=== PATIENT | male | born 1950 | race Caucasian/White ===

== ENCOUNTER 2022-03-09 15:43 | Outpatient (CLI) | payer MEDICARE, SELFPAY ==
[2022-03-09 10:15] LABS: Albumin* 4.2 g/dL (3.3-5.0); Chloride* 100 mmol/L (96-114); Sodium* 141 mmol/L (135-149)
[2022-03-09 10:16] LABS: Potassium* 4.6 mmol/L (3.6-5.1)
[2022-03-09 10:17] LABS: Cholesterol* 108 mg/dL (90-199)
[2022-03-09 10:18] LABS: Alanine Aminotransferase* 19 U/L (4-50); Alkaline Phosphatase* 77 U/L (40-150); Aspartate Amino Transferase* 18 U/L (12-35); Bilirubin Total* 0.5 mg/dL (0.1-1.5); Blood Urea Nitrogen* 13 mg/dL (7-30); Carbon Dioxide* 28 mmol/L (20-32); Creatinine* 0.6 mg/dL (0.5-1.5); Estimated Glomerular Filt Rate 104 ml/min; Glucose* 171 mg/dL (60-115); Total Protein* 6.8 g/dL (6.0-8.3); Triglycerides* 77 mg/dL (40-149)
[2022-03-09 10:19] LABS: Calcium* 9.2 mg/dL (8.4-10.6); HDL Cholesterol* 38 mg/dL (>=40); LDL Cholesterol Calculated 55 mg/dL (<100)
[2022-03-09 10:35] LABS: Creatinine Urine 58.3 mg/dL
[2022-03-09 10:39] LABS: Microalbumin Creatinine Ratio 170 mg/g (0-30); Microalbumin Urine 10 mg/dL
[2022-03-09 10:49] LABS: PSA Screen* 1.89 ng/mL (0.10-4.00)
== END 2022-03-09 15:44 | disposition home or self-care (01) ==
PROVIDERS: Visit Provider Family Medicine
DX: Z00.00 Encounter for general adult medical examination without abnormal findings (principal); E11.9 Type 2 diabetes mellitus without complications; E78.00 Pure hypercholesterolemia, unspecified; I10 Essential (primary) hypertension; E66.01 Morbid (severe) obesity due to excess calories; Z12.5 Encounter for screening for malignant neoplasm of prostate; Z13.6 Encounter for screening for cardiovascular disorders; Z79.01 Long term (current) use of anticoagulants
CPT/HCPCS: 80053; 80061; 82043; 82570; 84153

== ENCOUNTER 2022-05-21 07:27 | Outpatient (CLI) | payer MEDICARE, SELFPAY ==
[2022-05-21 09:14] LABS: Albumin* 4.5 g/dL (3.3-5.0); Chloride* 103 mmol/L (96-114); Sodium* 140 mmol/L (135-149)
[2022-05-21 09:16] LABS: Carbon Dioxide* 31 mmol/L (20-32); Cholesterol* 107 mg/dL (90-199); Creatinine* 0.5 mg/dL (0.5-1.5); Estimated Glomerular Filt Rate 110 ml/min
[2022-05-21 09:17] LABS: Alanine Aminotransferase* 16 U/L (4-50); Alkaline Phosphatase* 58 U/L (40-150); Aspartate Amino Transferase* 22 U/L (12-35); Bilirubin Total* 1.1 mg/dL (0.1-1.5); Blood Urea Nitrogen* 15 mg/dL (7-30); Calcium* 9.4 mg/dL (8.4-10.6); Glucose* 108 mg/dL (60-115); HDL Cholesterol* 34 mg/dL (>=40); LDL Cholesterol Calculated 56 mg/dL (<100); Total Protein* 7.4 g/dL (6.0-8.3); Triglycerides* 84 mg/dL (40-149)
[2022-05-21 09:29] LABS: Potassium* 5.5 mmol/L (3.6-5.1)
== END 2022-05-21 07:28 | disposition home or self-care (01) ==
LOC: NFLDREF 07:28
PROVIDERS: PCP Family Medicine; Visit Provider Family Medicine
DX: I10 Essential (primary) hypertension (principal); E78.00 Pure hypercholesterolemia, unspecified
CPT/HCPCS: 80053; 80061

== ENCOUNTER 2022-08-23 07:35 | Outpatient (CLI) | payer MEDICARE, SELFPAY | END 2022-08-23 07:36 | disposition home or self-care (01) | LOC: NFLDREF 08-24 00:26 | PROVIDERS: PCP Family Medicine; Referring Provider Family Medicine; Visit Provider Family Medicine | DX: I10 Essential (primary) hypertension (principal) | CPT/HCPCS: 80048 ==

== ENCOUNTER 2022-11-12 08:11 | Outpatient (CLI) | payer MEDICARE, SELFPAY | END 2022-11-12 08:12 | disposition home or self-care (01) | PROVIDERS: PCP Family Medicine; Visit Provider Family Medicine | DX: E66.01 Morbid (severe) obesity due to excess calories (principal); E11.21 Type 2 diabetes mellitus with diabetic nephropathy; E78.00 Pure hypercholesterolemia, unspecified; I10 Essential (primary) hypertension; I48.20 Chronic atrial fibrillation, unspecified; Z79.01 Long term (current) use of anticoagulants; Z12.5 Encounter for screening for malignant neoplasm of prostate | CPT/HCPCS: 80053; 82043; 82570; 84153 ==

== ENCOUNTER 2022-12-07 07:30 | Outpatient (CLI) | payer MEDICARE, SELFPAY | END 2022-12-07 07:31 | disposition home or self-care (01) | LOC: NFLDREF 12-08 08:52 | PROVIDERS: PCP Family Medicine; Referring Provider Family Medicine; Visit Provider Family Medicine | DX: I10 Essential (primary) hypertension (principal) | CPT/HCPCS: 80048 ==

== ENCOUNTER 2023-05-17 07:28 | Outpatient (CLI) | payer MEDICARE, SELFPAY ==
--- OUTSIDE RECORDS SUMMARY | 2023-05-22 11:55 | XMS_ITS | Clinical Summary ---
Author Name Unknown Organization [id number] [facility] Address [place], [place] [address] Care Team Providers Care Medical Insurance Collector Name Role Phone Bonnie Child MD Primary Care Provider + Allergies Active Allergy Reactions Criticality Noted Date Comments Venom-Honey Bee Anaphylaxis High 10/16/2017 Cephalexin Rash 10/16/2017 Erythromycin Hives 10/16/2017 Insulin Detemir Rash 10/16/2017 Opioids - Morphine Analogues Angioedema 018 Penicillins Anaphylaxis High 10/16/2017 Poison Sayra Extract Rash 10/16/2017 Poison Medon Extract Rash 10/16/2017 Shellfish Derived Hives,Rash 10/16/2017 Medications Medication Sig Dispensed Refills Start Date End Date Status apixaban 5 mg (74 tabs) DsPk Take 5 mg by mouth 2 times daily. 0 10/02/2017 Active aspirin (ECOTRIN) 81 mg enteric coated tablet Take 81 mg by mouth once daily. 0 10/02/2017 Active lisinopril (PRINIVIL; ZESTRIL) 10 mg tablet Take 7.5 mg by mouth 2 times daily. 0 10/02/2017 Active lisinopril (PRINIVIL; ZESTRIL) 5 mg tablet Take 7.5 mg by mouth 2 times daily. 0 10/02/2017 Active simvastatin (ZOCOR) 40 mg tablet Take 40 mg by mouth once daily. 0 10/02/2017 Active metoprolol succinate (TOPROL XL) 50 mg sustained-release tablet Take 150 mg by mouth once daily. 0 10/02/2017 Active insulin detemir U-100 (LEVEMIR) 100 unit/mL (3 mL) pen Inject 20 Units subcutaneous once daily with a meal. 0 10/02/2017 Active NOVOLOG U-100 INSULIN ASPART SUBQ Inject 6 Units subcutaneous once daily. 0 10/02/2017 Active ketoconazole 2% shampoo (NIZORAL) 2 % shampoo Apply topically to affected area(s) once daily. Lather on damp scalp, leave on for 5min, then rinse with water. 1 Bottle 0 10/16/2017 Active triamcinolone (ARISTOCORT; KENALOG) 0.1 % cream Apply topically to affected area(s) 3 times daily. 1 Tube 0 10/16/2017 Active Active Problems Problem Noted Date Diagnosed Date Thoracic aortic ectasia 11/17/2018 Chronic atrial fibrillation 11/17/2018 Type 2 diabetes mellitus wit hout complication, with long-term current use of insulin 11/17/2018 Social History Tobacco Use Types Packs/Day Years Used Date Smoking Tobacco: Former Pipe 0 05/13/1973 - 05/13/1990 Smokeless Tobacco: Never Tobacco Cessation:Counseling Given: Yes Alcohol Use Standard Drinks/Week Comments Yes 0 (1 standard drink = 0.6 oz pur e alcohol) occas Sex and Gender Information Value Date Recorded Sex Assigned at Not on file Gender Identity Not on file Sexual Orientation Not on file Obstetrics History Last Filed Vital Signs Vital Sign Reading Time Taken Comments Blood Pressure 147/88 10/16/2017 9:34 AM CDT Pulse 66 10/16/2017 9:34 AM CDT Temperature 36.7 ??C (98.1 ??F) 10/16/2017 9:34 AM CD T Respiratory Rate - - Oxygen Saturation 97% 10/16/2017 9:34 AM CDT Inhaled Oxygen Concentration - - Weight 132.3 kg (291 lb 9.6 oz) 10/16/2017 9:34 AM CDT Height - - Body Mass Index - - Plan of Treatment Health Maintenance Due Date Last Done Comments COVID-19 vaccine series (#1) 03/13/1952 Tdap 09/10/1962 Depression screening for age 12+ 1963 BMI (ht and wt on same day) for age 18+ 09/10/1969 Hepatitis C screening for age 18-79 09/10/1969 Tetanus booster 1971 Colonoscopy through age 75 09/10/1996 Lipids for age 45-75 09/10/1996 Zoster (shingles) series for age 50+ (1 of 2) 09/11/19 02 Medicare Wellness for age 65+ 09/10/2016 Pneumococcal series for age 65+ (1 of 1 - PCV) 017 Influenza for age 65+ 01/11/2023 Care Teams Medical Insurance Collector Relationship Specialty Start Date End Date Bonnie Child MD [address] [place] [address] PCP - General Family Practice 10/02/17
--- OUTSIDE RECORDS SUMMARY | 2023-05-22 11:55 | XMS_ITS | Data Portability ---
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 Plan of Treatment Reminders Order Date Submit Date Provider Last Modified By Organization Details Last Modified Time Details Appointments None recorded. Lab None recorded. Referral None recorded. Procedures None recorded. Surgeries None recorded. Imaging holter monitor 2016 017 bam Robertson, [address], [place], [address], 7 12:27:34 US, duplex, carotid artery 2016 017 [email or web address] [place], [address], [place], [address], 7 09:58:19 exercise stress echocardio gram 2016 017 [email or web address] [place], [address], [place], [address], 7 09:58:19 electrocar diogram 2016 017 [email or web address] [place], [address], [place], [address], 7 16:39:02 Medication Orders metoprolol succinate ER 50 mg tablet,ext ended release 24 hr 2016 017 INTERFACE [facility] [id number], [address] [place] [address], [id number], 7 11:58:24 lisinopril 5 mg tablet 2016 017 INTERFACE [facility] [id number], [address] [place], [address], 7 11:58:22 lisinopril 10 mg tablet [email or web address] [facility] [id number], [address] [place] [address], [id number], 8 14:34:25 Patient TargetsNo targets recorded. Patient InstructionsNo instructions recorded. Reason for Referral None Reported. Results Created Date Observation Date Name Description Value Unit Range Abnormal Flag LastModifiedBy Organization Detail LastModifiedTime 05/12/20 08 05/12/2008 lipid panel , serum cholesterol 199 Not Available Not Available 08/08/2016 14:51:12 05/12/20 08 05/12/2008 lipid panel , serum HDL 39.00 Not Available Not Available 07/12 14:51:12 05/12/20 08 05/12/2008 lipid panel , serum LDL 91.00 Not Available Not Available 07/12 14:51:12 05/12/20 08 05/12/2008 lipid panel , serum triglyceride s 347 Not Available Not Available 14:51:12 05/12/20 08 05/12/2008 lipid panel , serum cholhdlratio 5.10 Not Available Not Available 08/08/2016 14:51:12 05/12/20 08 05/12/2008 lipid panel , serum nonhdl 160.00 Not Available Not Available 07/12 14:51:12 05/12/20 08 05/12/2008 lipid panel , serum AST 10 Not Available Not Available 07/12 14:51:12 05/12/20 08 05/12/2008 lipid panel , serum ALT 42 Not Available Not Available 07/12 14:51:12 06/11/19 15 06/11/2014 lipid panel , serum cholesterol 134 Not Available Not Available 08/08/2016 18:32:07 06/11/19 15 06/11/2014 lipid panel , serum HDL 50.00 Not Available Not Available 07/12 18:32:07 06/11/19 15 06/11/2014 lipid panel , serum LDL 69.00 Not Available Not Available 07/12 18:32:07 06/11/19 15 06/11/2014 lipid panel , serum triglyceride s 76 Not Available Not Available 18:32:07 06/11/19 15 06/11/2014 lipid panel , serum cholhdlratio 2.68 Not Available Not Available 08/08/2016 18:32:07 06/11/19 15 06/11/2014 lipid panel , serum nonhdl 84.00 Not Available Not Available 07/12 18:32:07 06/11/19 15 06/11/2014 lipid panel , serum AST 27 Not Available Not Available 07/12 18:32:07 06/11/19 15 06/11/2014 lipid panel , serum ALT 57 Not Available Not Available 07/12 18:32:07 07/08/19 15 07/09/2014 digox in, serum digoxin, serum 0.9 NG/mL 0.9-2. 0 Not Available [facility], [address] 07/12/2016 05:52:14 06/28/19 16 06/28/2015 lipid panel , serum cholesterol 123 Not Available Not Available 08/08/2016 18:32:05 06/28/19 16 06/28/2015 lipid panel , serum HDL 52.00 Not Available Not Available 07/12 18:32:05 06/28/19 16 06/28/2015 lipid panel , serum LDL 56.00 Not Available Not Available 07/12 18:32:05 06/28/19 16 06/28/2015 lipid panel , serum triglyceride s 76 Not Available Not Available 18:32:05 06/28/19 16 06/28/2015 lipid panel , serum cholhdlratio 2.37 Not Available Not Available 08/08/2016 18:32:05 06/28/19 16 06/28/2015 lipid panel , serum nonhdl 71.00 Not Available Not Available 07/12 18:32:05 06/28/19 16 06/28/2015 lipid panel , serum AST 42 Not Available Not Available 07/12 18:32:05 06/28/19 16 06/28/2015 lipid panel , serum ALT 55 Not Available Not Available 07/12 18:32:05 07/07/19 16 07/08/2015 digox in, serum digoxin <0.5 mcg/L 0.8-2. 0 low Not Available [facility] [place], [address] 08/17/2016 14:12:05 07/07/19 16 07/08/2015 basic metab olic panel glucose 94 mg/dL 65-99 normal Not Available [facility] [place], [address] 08/17/2016 14:12:04 07/07/19 16 07/08/2015 basic metab olic panel urea nitrogen (BUN) 27 mg/dL 7-25 high Not Available [facility] [place], [address] 08/17/2016 14:12:04 07/07/19 16 07/08/2015 basic metab olic panel creatinine 0.79 mg/dL 0.70-1 .25 normal Not Available [facility] [place], [address] 08/17/2016 14:12:04 07/07/19 16 07/08/2015 basic metab olic panel eGFR non-afr. macanese 96 mL/mi n/1.7 3m2 > or = 60 normal Not Available [facility] [place], [address] 08/17/2016 14:12:04 07/07/19 16 07/08/2015 basic metab olic panel eGFR 111 mL/mi n/1.7 3m2 > or = 60 normal Not Available [facility] [place], [address] 08/17/2016 14:12:04 07/07/19 16 07/08/2015 basic metab olic panel BUN/creatini ne ratio 34 (calc ) 6-22 high Not Available [facility] [place], [address] 08/17/2016 14:12:04 07/07/19 16 07/08/2015 basic metab olic panel sodium 139 mmol/ L 135-14 6 normal Not Available [facility] [place], [address] 08/17/2016 14:12:04 07/07/19 16 07/08/2015 basic metab olic panel potassium 5.1 mmol/ L 3.5-5. 3 normal Not Available [facility] [place], [address] 08/17/2016 14:12:04 07/07/19 16 07/08/2015 basic metab olic panel chloride 104 mmol/ L 98-110 normal Not Available [facility] [place], [address] 08/17/2016 14:12:04 07/07/19 16 07/08/2015 basic metab olic panel carbon dioxide 31 mmol/ L 19-30 high Not Available [facility] [place], [address] 08/17/2016 14:12:04 07/07/19 16 07/08/2015 basic metab olic panel calcium 9.5 mg/dL 8.6-10 .3 normal Not Available [facility] [place], [address] 08/17/2016 14:12:04 06/27/19 17 12/18/2013 unlis margaret imagi ng order No observ ation record ed. [email or web address] Not Available 06/27/2016 00:03:36 06/27/19 17 05/12/2008 unlis margaret imagi ng order No observ ation record ed. [email or web address] Not Available 06/27/2016 00:03:38 06/27/19 17 07/01/2015 , echoc ardio gram No observ ation record ed. [email or web address] Not Available 06/27/2016 00:03:40 06/27/19 17 01/24/2010 US, echoc ardio gram No observ ation record ed. [email or web address] Not Available 06/27/2016 00:03:43 06/27/19 17 01/24/2010 US, echoc ardio gram No observ ation record ed. [email or web address] Not Available 06/27/2016 00:03:45 02/15/20 17 04/11/2007 US, echoc jeremyo gram No observ ation record ed. [email or web address] Not Available 06/27/2016 00:03:48 06/27/19 17 07/21/2007 elect rocar diogr am No observ ation record ed. [email or web address] Not Available 06/27/2016 00:03:50 06/27/19 17 08/04/2010 elect rocar diogr am No observ ation record ed. [email or web address] Not Available 06/27/2016 00:03:53 06/27/19 17 11/18/2009 elect rocar diogr am No observ ation record ed. [email or web address] Not Available 06/27/2016 00:03:55 06/27/19 17 11/25/2013 elect rocar diogr am No observ ation record ed. [email or web address] Not Available 06/27/2016 00:03:58 06/27/19 17 12/12/2011 elect rocar diogr am No observ ation record ed. [email or web address] Not Available 06/27/2016 00:04:01 06/27/19 17 12/17/2012 elect rocar diogr am No observ ation record ed. [email or web address] Not Available 06/27/2016 00:04:03 06/27/19 17 12/24/2014 elect rocar diogr am No observ ation record ed. [email or web address] Not Available 06/27/2016 00:04:06 06/27/19 17 07/01/2015 US, doppl er, arter ial No observ ation record ed. [email or web address] Not Available 06/27/2016 00:04:09 06/27/19 17 09/03/2008 US, doppl er, arter ial No observ ation record ed. [email or web address] Not Available 06/27/2016 00:04:11 06/27/19 17 01/13/2013 US, doppl er, arter ial No observ ation record ed. [email or web address] Not Available 06/27/2016 00:04:14 06/27/19 17 01/01/2012 cardi ac stres s test No observ ation record ed. [email or web address] Not Available 06/27/2016 00:04:17 06/27/19 17 01/01/2012 cardi ac stres s test No observ ation record ed. [email or web address] Not Available 06/27/2016 00:04:20 06/27/19 17 04/16/2008 cardi ac stres s test No observ ation record ed. [email or web address] Not Available 06/27/2016 00:04:23 06/27/19 17 04/17/2007 cardi ac stres s test No observ ation record ed. [email or web address] Not Available 06/27/2016 00:04:27 06/27/19 17 04/25/2007 imagi ng inter preta tion No observ ation record ed. [email or web address] Not Available 06/27/2016 00:04:30 06/27/19 17 04/25/2007 imagi ng inter preta tion No observ ation record ed. [email or web address] Not Available 06/27/2016 00:04:33 08/16/19 17 elect rocar diogr am No observ ation record ed. [email or web address] [place]o [address], [place], [address], 08/15/2016 17:46:40 09/05/19 17 exerc ise stres s echoc ardio gram No observ ation record ed. [email or web address] [place] [address], [place], [address], 10/02/2016 13:51:20 09/07/19 17 09/06/2016 exerc ise stres s echoc ardio gram RESTIN G ECHOCA RDIOGR AM: The left ventri cular ejecti on fracti on is within the normal range. LVEF is 60-65% . Diasto lic functi on is indete rminat e due to atrial fibril lation Left atrium is modera tely dilate d. Right atrium is modera tely dilate d. The Aortic valve is sclero tic. There is no aortic valvul ar stenos is. Mild mitral regurg itatio n. Mild to modera te pulmon ic regurg itatio n. Mild tricus pid regurg itatio n. The RVSP is 30-35 mmHg. STRESS ECHOCA RDIOGR AM: Normal stress echoca rdiogr am. No eviden ce of induci ble wall motion abnorm alitie s with stress . EKG showed freque nt PVCs.R ESTING ECHOCA RDIOGR AM: The left ventri cular ejecti on fracti on is within the normal range. LVEF is 60-65% . Diasto lic functi on is indete rminat e due to atrial fibril lation Left atrium is modera tely dilate d. Right atrium is modera tely dilate d. The Aortic valve is sclero tic. There is no aortic valvul ar stenos is. Mild mitral regurg itatio n. Mild to modera te pulmon ic regurg itatio n. Mild tricus pid regurg itatio n. The RVSP is 30-35 mmHg. STRESS ECHOCA RDIOGR AM: Normal stress echoca rdiogr am. No eviden ce of induci ble wall motion abnorm alitie s with stress . EKG showed freque nt PVCs. [email or web address] Robertson [address], [place], [address], 11/12/2016 11:34:27 09/07/19 17 09/06/2016 exerc ise stres s echoc ardio gram No observ ation record ed. bam Robertson [address], [place], [address], 10/02/2016 13:51:21 09/07/19 17 09/06/2016 US, duple x, carot id arter y 1. 40-45% stenos is in the right ICA by 2-D. No hemody namica lly signif icant lesion s. 2. 30-35% stenos is in the right bulb and 40-45% stenos is in the right ICA by 2-D. No hemody namica lly signif icant lesion s. 3. 30-35% stenos is in the left CCA and 40-45% stenos is in the right bulb. No hemody namica lly signif icant lesion s. 4. Bilate ral anterg rade verteb ral flow. bam Robertson [address], [place], [address], 10/02/2016 13:51:21 09/07/19 17 09/06/2016 US, duple x, carot id arter y No observ ation record ed. bam Robertson [address], [place], [address], 10/02/2016 13:51:21 09/26/19 17 donato r monit or No observ ation record ed. bam Robertson [address], [place], [address], 12/14/2016 10:20:23 Result Notes None recorded. Problems Name Status Onset Date Resolution Date Notes Provider Name and Address Organization Details Recorded Time Pure hypercholesterol emia Active 2009 Not Available [facility] 7 21:59:45 Coronary arteriosclerosis Active 2006 PCI [LAD mid Taxus 2.75 X 16, RCA mid taxus 2.5 X 20] - 04/25/2007 Not Available [facility] 7 21:59:45 Paroxysmal atrial fibrillation Active 2009 PAF Not Available [facility] 7 21:59:45 Coronary arteriosclerosis in [place] artery Active 2009 Not Available [facility] 7 21:59:45 Benign essential hypertension Active 2009 Not Available [facility] 7 21:59:46 Atrial fibrillation Active 2010 Not Available [facility] 7 21:59:46 Multiple AND bilateral precerebral artery stenosis Active 2012 Not Available [facility] 7 21:59:46 Permanent atrial fibrillation Active 2015 Not Available [facility] 7 21:59:46 Dyslipidemia Active 2009 Dyslipidemia [Type: Cholesterol] Not Available [facility] 7 21:59:46 Diabetes mellitus Active 2012 Diabetes Not Available [facility] 7 21:59:46 Hypertensive disorder Active 2012 Hypertension Not Available [facility] 7 21:59:46 Type 2 diabetes mellitus Active 2009 Not Available [facility] 7 21:59:46 Electrocardiogra m abnormal Active 2011 Not Available [facility] 7 21:59:46 History of cardiac catheterization Active 2006 [facility] [EF 60%, LAD mid 70-80%, RCA is Dominant & prox 90-95%] - 04/25/2007 Not Available [facility] 7 21:59:46 Notes:07/04/2015: ReportDisp lay: Moderate ICA Right 30-50-% ReportDisplay: Moderate CCA Bulb Right 30-50%, Problem Notes None recorded. Procedures Surgical History Date Name Laterality Status Provider Name and Address Organization Details Recorded Time 017 Stress Echo (13867) completed Arturo sánchez, [place] - [facility] 11/05/2016 16:49:33 017 Carotid Duplex completed Avi sánchez, [place] - [facility] 11/12/2016 11:35:26 016 Tte w/doppler complete completed Not Available [email or web address] 08/03/2016 14:05:47 016 Vascular study completed Not Available [email or web address] 08/03/2016 14:05:47 015 Electrocardiogram complete completed Not Available [facility] 08/03/2016 14:05:47 014 Electrocardiogram complete completed Not Available [email or web address] 08/03/2016 14:05:47 013 Vascular study completed Not Available [email or web address] 08/03/2016 14:05:47 013 Electrocardiogram complete completed Not Available [facility] 08/03/2016 14:05:47 012 Cardiovascular stress test completed Not Available [facility] 08/03/2016 14:05:47 012 Cardiovascular stress test completed Not Available [facility] 08/03/2016 14:05:47 012 Electrocardiogram complete completed Not Available [facility] 08/03/2016 14:05:47 011 Electrocardiogram complete completed Not Available [facility] 08/03/2016 14:05:47 010 Tte w/doppler complete completed Not Available [email or web address] 08/03/2016 14:05:47 010 Tte w/doppler complete completed Not Available [email or web address] 08/03/2016 14:05:47 010 Electrocardiogram complete completed Not Available [facility] 08/03/2016 14:05:47 009 Vascular study completed Not Available [email or web address] 08/03/2016 14:05:47 008 Cardiovascular stress test completed Not Available [facility] 08/03/2016 14:05:47 008 Electrocardiogram complete completed Not Available [facility] 08/03/2016 14:05:47 007 Left heart catheterization completed Not Available [facility] 08/03/2016 14:05:47 007 Left heart catheterization completed Not Available [facility] 08/03/2016 14:05:47 007 Cardiovascular stress test completed Not Available [facility] 08/03/2016 14:05:48 007 Tte w/doppler complete completed Not Available [facility] 08/03/2016 14:05:48 Imaging Results Imaging Date Name Status LastModified by Organization Details LastModified Time 12/18/2013 unlisted imaging order completed [email or web address] Information not available 06/27/2016 00:03:36 05/12/2008 unlisted imaging order completed [email or web address] Information not available 06/27/2016 00:03:38 07/01/2015 US, echocardiogram completed [email or web address] Inform ation not available 06/27/2016 00:03:40 01/24/2010 US, echocardiogram completed [email or web address] Inform ation not available 06/27/2016 00:03:43 01/24/2010 US, echocardiogram completed [email or web address] Inform ation not available 06/27/2016 00:03:45 04/11/2007 US, echocardiogram completed [email or web address] Inform ation not available 06/27/2016 00:03:48 07/21/2007 electrocardiogram completed [email or web address] Informa tion not available 06/27/2016 00:03:50 08/04/2010 electrocardiogram completed [email or web address] Informa tion not available 06/27/2016 00:03:53 11/18/2009 electrocardiogram completed [email or web address] Informa tion not available 06/27/2016 00:03:55 11/25/2013 electrocardiogram completed [email or web address] Informa tion not available 06/27/2016 00:03:58 12/12/2011 electrocardiogram completed [email or web address] Informa tion not available 06/27/2016 00:04:01 12/17/2012 electrocardiogram completed [email or web address] Informa tion not available 06/27/2016 00:04:03 12/24/2014 electrocardiogram completed [email or web address] Informa tion not available 06/27/2016 00:04:06 07/01/2015 US, doppler, arterial completed [email or web address] Information not available 06/27/2016 00:04:09 09/03/2008 US, doppler, arterial completed [email or web address] Information not available 06/27/2016 00:04:11 01/13/2013 US, doppler, arterial completed [email or web address] Information not available 06/27/2016 00:04:14 01/01/2012 cardiac stress test completed [email or web address] Infor mation not available 06/27/2016 00:04:17 01/01/2012 cardiac stress test completed [email or web address] Infor mation not available 06/27/2016 00:04:20 04/16/2008 cardiac stress test completed [email or web address] Infor mation not available 06/27/2016 00:04:23 04/17/2007 cardiac stress test completed [email or web address] Infor mation not available 06/27/2016 00:04:27 04/25/2007 imaging interpretation completed [email or web address] Information not available 06/27/2016 00:04:30 04/25/2007 imaging interpretation completed [email or web address] Information not available 06/27/2016 00:04:33 08/15/2016 electrocardiogram completed [email or web address] [place] [address], [place], [address], 08/15/2016 17:46:40 09/04/2016 exercise stress echocardiogram completed lbrummond [place] [address], [place], [address], 10/02/2016 13:51:20 09/06/2016 exercise stress echocardiogram completed [email or web address] Robertson [address], [place], [address], 11/12/2016 11:34:27 09/06/2016 exercise stress echocardiogram completed lbrumjarred Robertson [address], [place], [address], 10/02/2016 13:51:21 09/06/2016 US, duplex, carotid artery completed lbrummond [place] [address], [place], [address], 10/02/2016 13:51:21 09/06/2016 US, duplex, carotid artery completed lbrummond [place] [address], [place], [address], 10/02/2016 13:51:21 09/25/2016 holter monitor completed [email or web address] [place] [address], [place], [address], 12/14/2016 10:20:23 Procedure Notes None recorded. Medical Equipment None Reported. Allergies Allergen ID Allergen Name Allergen Category Reaction Reaction Severity Criticality Documentation Date Start Date Code Code System Note Provider Name and Address Organization Details Recorded Time [id number] erythromy jaime medicatio n Not available Not available Not available 05/10/20162009 4053 RxNorm Not Available [facility] 6 14:34:34 647860 Medicinal product containin g penicilli n and acting as antibacte rial agent (product) medicatio n Not available Not available Not available 05/10/20162009 05835 05 SNOMED Not Available [facility] 6 14:34:34 Medications Name Sig Start Date Stop Date Status Note LastModified by Organization Details LastModified Time metoprolol succinate ER 50 mg tablet,exte nded release 24 hr TAKE THREE TABLETS BY MOUTH DAILY NEED TO GET ALL FUTURE REFILLS FROM [facility] 2017 active Not Available Not Available Not Avai lable simvastatin 40 mg tablet TAKE ONE TABLET BY MOUTH EVERY EVENING active Not Available Not Available No t Available lisinopril 10 mg tablet TAKE 1 TABLET BY MOUTH EVERY DAY 2017 active Not Available Not Available Not Avai lable aspirin 81 mg tablet take 1 tablet (81MG) by ORAL route every day 2010 active Not Available Not Available Not Avai lable lisinopril 5 mg tablet Take 2 tablets every day by oral route. 2016 active Not Available Not Available Not Avai lable pen needle, diabetic 31 gauge x 5/16 08/15 completed Not Available Not Available Not Available Novolog FlexPen U-100 Insulin aspart 100 unit/mL (3 mL) subcutaneou s active Not Available Not Available Not Available Lantus Solostar U-100 Insulin 100 unit/mL (3 mL) subcutaneou s pen PRN for blood sugar over 100. active Not Available Not Available No t Available Humalog Mix 50-50 KwikPen U-100 Insulin 100 unit/mL subcutaneou s pen inject by subcutane ous route as per insulin sliding scale protocol 08/15 completed Not Available Not Available Not Available Protonix 40 mg granules delayed-rel ease packet take 1 packet by oral route every day mixed in 1 teaspoonf ul of applesauc e or apple juice 08/15 completed Not Available Not Available Not Available Prevnar 13 (PF) 0.5 mL intramuscul ar syringe 08/15 completed Not Available Not Available Not Available Eliquis 5 mg tablet TAKE 1 TABLET BY MOUTH TWICE A DAY active Not Available Not Available No t Available Fluzone Quad 60 mcg (15 mcg x 4)/0.5 mL IM suspension 08/15 completed Not Available Not Available Not Available Vitals Date Recorded Heart rate Provider Name an d Address Organization Details Last Updated DateTime 06/23/2015 59 /min Not Available [facility] 06/26/2016 18:25:35 Date Recorded Heart rate Provider Name an d Address Organization Details Last Updated DateTime 06/23/2014 64 /min Not Available [facility] 06/26/2016 22:32:30 Date Recorded Heart rate Provider Name an d Address Organization Details Last Updated DateTime 12/24/2014 61 /min Not Available [facility] 06/27/2016 00:01:28 Date Recorded Heart rate Provider Name an d Address Organization Details Last Updated DateTime 11/25/2013 75 /min Not Available [facility] 06/27/2016 09:38:58 Date Recorded Heart rate Provider Name an d Address Organization Details Last Updated DateTime 01/06/2014 75 /min Not Available [facility] 06/27/2016 09:41:31 Date Recorded Heart rate Provider Name an d Address Organization Details Last Updated DateTime 06/18/2012 79 /min Not Available [facility] 06/27/2016 09:53:40 Date Recorded Heart rate Provider Name an d Address Organization Details Last Updated DateTime 12/17/2012 121 /min Not Available [facility] 06/27/2016 15:27:18 Date Recorded Heart rate Body mass index (BMI) Heart rate Body weight Body height Systolic blood pressure Diastolic blood pressure Provider Name and Address Organization Details Last Updated DateTime 3 88 /min 36.8 kg/m2 88 /min 877511. 29951 g 177.8 cm 128 mm[Hg] 80 mm[Hg] Not Available [facility] 7 04:33:30 Date Recorded Heart rate Provider Name an d Address Organization Details Last Updated DateTime 12/12/2011 81 /min Not Available [facility] 06/28/2016 08:30:57 Date Recorded Heart rate Provider Name an d Address Organization Details Last Updated DateTime 11/22/2010 72 /min Not Available [facility] 06/28/2016 08:32:06 Date Recorded Heart rate Provider Name an d Address Organization Details Last Updated DateTime 08/04/2010 105 /min Not Available nicol gordilloHearthang [facility] [facility] 06/28/2016 08:35:02 Date Recorded Heart rate Body weight Body height Body mass index (BMI) Heart rate Respiratory rate Systolic blood pressure Diastolic blood pressure Provider Name and Address Organization Details Last Updated DateTime 1 72 /min 065577. 54908 g 177.8 cm 38.6 kg/m2 72 /min 16 /min 120 mm[Hg] 88 mm[Hg] Not Available [facility] 7 04:33:33 Date Recorded Heart rate Body weight Body height Body mass index (BMI) Heart rate Respiratory rate Systolic blood pressure Diastolic blood pressure Provider Name and Address Organization Details Last Updated DateTime 1 94 /min 113428. 39022 g 177.8 cm 37 kg/m2 94 /min 17 /min 122 mm[Hg] 86 mm[Hg] Not Available [facility] 7 04:33:32 Date Recorded Heart rate Body weight Body height Body mass index (BMI) Heart rate Respiratory rate Systolic blood pressure Diastolic blood pressure Provider Name and Address Organization Details Last Updated DateTime 0 71 /min 864917. 16926 g 177.8 cm 38.3 kg/m2 71 /min 16 /min 120 mm[Hg] 88 mm[Hg] Not Available [facility] 7 04:32:48 Date Recorded Heart rate Provider Name an d Address Organization Details Last Updated DateTime 01/27/2010 70 /min Not Available eugeneedmond Connor [facility] 06/28/2016 08:43:48 Date Recorded Body weight Body height Body mass index (BMI) Heart rate Systolic blood pressure Diastolic blood pressure Provider Name and Address Organization Details Last Updated DateTime 7 398952. 46 g 175.26 cm 37.5 kg/m2 59 /min 180 mm[Hg] 100 mm[Hg] [place] [address], [place], [address], [place] - [facility] 7 16:05:10 Date Recorded Body height Body weight Body mass index (BMI) Heart rate Oxygen saturation Oxygen saturation in Arterial blood by Pulse oximetry Systolic blood pressure Diastolic blood pressure Provider Name and Address Organization Details Last Updated DateTime 7 175.26 cm 786372. 68 g 37.1 kg/m2 76 /min 97 % 97 % 160 mm[Hg] 100 mm[Hg] [place] [address], [place], [address], [place] - [facility] 7 15:45:20 Date Recorded Body height Body weight Body mass index (BMI) Heart rate Oxygen saturation Oxygen saturation in Arterial blood by Pulse oximetry Systolic blood pressure Diastolic blood pressure Provider Name and Address Organization Details Last Updated DateTime 7 175.26 cm 828496. 46 g 37.5 kg/m2 62 /min 97 % 97 % 138 mm[Hg] 86 mm[Hg] Maryjane Goldsmith [facility], [place] - [facility] 7 11:36:26 Date Recorded Oxygen saturation Oxygen saturation in Arterial blood by Pulse oximetry Body weight Body height Body mass index (BMI) Heart rate Systolic blood pressure Diastolic blood pressure Provider Name and Address Organization Details Last Updated DateTime 6 97 % 97 % 61550.9 9007 g 177.8 cm 30.4 kg/m2 59 /min 130 mm[Hg] 78 mm[Hg] Not Available [facility] 7 04:32:48 Date Recorded Heart rate Body weight Body height Body mass index (BMI) Systolic blood pressure Diastolic blood pressure Provider Name and Address Organization Details Last Updated DateTime 5 64 /min 11801.3 5955 g 177.8 cm 30.9 kg/m2 124 mm[Hg] 72 mm[Hg] Not Available [facility] 7 04:33:29 Date Recorded Body weight Body height Body mass index (BMI) Heart rate Systolic blood pressure Diastolic blood pressure Provider Name and Address Organization Details Last Updated DateTime 5 89704.8 4348 g 177.8 cm 29.4 kg/m2 61 /min 126 mm[Hg] 84 mm[Hg] Not Available [facility] 7 04:33:28 Date Recorded Heart rate Oxygen saturation Oxygen saturation in Arterial blood by Pulse oximetry Body weight Body height Body mass index (BMI) Systolic blood pressure Diastolic blood pressure Provider Name and Address Organization Details Last Updated DateTime 4 75 /min 98 % 98 % 882916. 10826 g 177.8 cm 33.2 kg/m2 124 mm[Hg] 84 mm[Hg] Not Available [facility] 7 04:33:29 Date Recorded Heart rate Oxygen saturation Oxygen saturation in Arterial blood by Pulse oximetry Body weight Body height Body mass index (BMI) Systolic blood pressure Diastolic blood pressure Provider Name and Address Organization Details Last Updated DateTime 4 75 /min 92 % 92 % 117743. 02482 g 177.8 cm 35.5 kg/m2 142 mm[Hg] 80 mm[Hg] Not Available [facility] 7 04:33:29 Date Recorded Body height Body mass index (BMI) Heart rate Body weight Systolic blood pressure Diastolic blood pressure Provider Name and Address Organization Details Last Updated DateTime 3 177.8 cm 37.2 kg/m2 121 /min 929476. 045198 g 150 mm[Hg] 98 mm[Hg] Not Available [facility] 7 04:33:30 Date Recorded Body weight Body height Body mass index (BMI) Heart rate Systolic blood pressure Diastolic blood pressure Provider Name and Address Organization Details Last Updated DateTime 3 518740. 89695 g 177.8 cm 37 kg/m2 79 /min 118 mm[Hg] 80 mm[Hg] Not Available [facility] 7 04:33:30 Date Recorded Body weight Body height Body mass index (BMI) Heart rate Respiratory rate Systolic blood pressure Diastolic blood pressure Provider Name and Address Organization Details Last Updated DateTime 2 639828. 49886 g 177.8 cm 37 kg/m2 81 /min 16 /min 130 mm[Hg] 80 mm[Hg] Not Available [facility] 7 04:33:31 Date Recorded Body weight Body height Body mass index (BMI) Heart rate Respiratory rate Systolic blood pressure Diastolic blood pressure Provider Name and Address Organization Details Last Updated DateTime 1 711662. 86381 g 177.8 cm 38.6 kg/m2 72 /min 72 /min 140 mm[Hg] 80 mm[Hg] Not Available [facility] 7 04:33:33 Date Recorded Body height Body mass index (BMI) Heart rate Body weight Systolic blood pressure Diastolic blood pressure Provider Name and Address Organization Details Last Updated DateTime 0 177.8 cm 39 kg/m2 70 /min 014774. 85662 g 120 mm[Hg] 70 mm[Hg] Not Available [facility] 7 04:33:33 Date Recorded Body weight Body height Body mass index (BMI) Heart rate Respiratory rate Systolic blood pressure Diastolic blood pressure Provider Name and Address Organization Details Last Updated DateTime 1 933499. 14302 g 177.8 cm 38.4 kg/m2 105 /min 16 /min 110 mm[Hg] 78 mm[Hg] Not Available [facility] 7 04:33:31 Social History Question Answer Notes LastModified by Organizat ion Details LastModified Time Tobacco Smoking Status Not Available [email or web address]- [facility] 06/27/2016 15:08:17 Do You Have An Advance Directive? No [email or web address] Information not available 06/27/2016 Live Alone Or With Others? With Others [email or web address] Information not available 06/27/2016 Caffeine Type? Coffee [email or web address] Information not available 06/27/2016 Diet? Low Fat/cholesterol [email or web address] Information not available 06/27/2016 Do You Have Children? Yes [email or web address] Information not available 06/27/2016 Exercise Frequency? Occasional [email or web address] Information not available 06/27/2016 Exercise Type? Walking [email or web address] Information not available 06/27/2016 Marital Status Comments? [email or web address] Information not available 06/27/2016 Alcohol Use? Yes [email or web address] Information not available 06/27/2016 Caffeine Use? Yes [email or web address] Information not available 06/27/2016 Alcohol Frequency? Occasionally [email or web address] Information not available 06/27/2016 Sex: Male Functional Status None recorded. Mental Status None recorded. Family History Relationship Description Onset Age of this Age Resolved Age Notes Father Atrial fibrillation Mother Cerebrovascular accident Father Insertion of cardiac biventricular permanent pacemaker (PPM) using fluoroscopic guidance Medical History No medical history recorded. Past Encounters Encounter ID Performer Location Encounter Start Date Encounter Closed Date Diagnosis/Indication [id number] Zuleika Gregg MD [place] [address] [facility] [address] [id number] 08/15/2016 15:40:36 08/15/2016 16:39:02 Atrial fibrillation Coronary arteriosclerosis in [place] artery Carotid artery stenosis [id number] Art[facility] Mr[facility] [address] [place] [address] 09/04/2016 14:19:25 09/04/2016 16:28:27 Coronary arteriosclerosis in [place] artery [id number] Arturo Robertson [address] [place] [address] 09/04/2016 14:22:24 09/04/2016 16:30:02 Coronary arteriosclerosis in [place] artery [id number] MD Marcelo Claire [address] [place] [address] 09/05/2016 15:21:04 09/05/2016 16:27:25 Paroxysmal atrial fibrillation Coronary arteriosclerosis in [place] artery Carotid artery stenosis Benign essential hypertension [id number] MD Marcelo Claire [address] [place] [address] 09/20/2016 11:16:53 09/20/2016 12:10:01 Benign essential hypertension Paroxysmal atrial fibrillation Coronary arteriosclerosis in [place] artery Carotid artery stenosis [id number] Maryjane Robertson [address] [place] [address] 09/26/2016 10:03:35 11/16/2016 08:21:36 Atrial fibrillation Health Concerns Section Related Observation LastModified by Organization Detai ls LastModified Time None Recorded Concern Status LastModified by Organization Details LastModified Time None Recorded Advance Directives Directive No: Payers Encounter Date Sequence Insurance Name Policy Number Policy Aleman Covered Member ID Aleman Member ID Guarantor Name 09/20/2016 1 [employer] (POS) [id number] Candy K Kimpton [id number] Conner S Kimpton 09/20/2016 1 [employer] (POS) [id number] Candy K Kimpton [id number] Conner S Kimpton 09/05/2016 1 [employer] (POS) [id number] Candy Peter Kimpton [id number] Conner S Kimpton 09/04/2016 1 [employer] (POS) [id number] Candy Green Kimpton [id number] Conner S Kimpton 09/04/2016 1 [employer] (POS) [id number] Candy Cherry [id number] Conner Cherry 08/15/2016 1 [employer] (POS) [id number] Candy Cherry [id number] Conner Cherry Notes Date Note Type Note Provider Name and Address Organization Details Recorded Time 08/15/2016 text/html HPI Notes: The patient is a pleasant 65-year-old male with a past medical history significant for CAD status post stent, paroxysmal atrial fibrillation, carotid artery disease, dyslipidemia, diabetes and hypertension who comes in for follow-up. He is in excellent shape and continues to exercise on a daily basis. Denies any palpitations. He has gained some weight as advised by his PCP. Blood pressure is running well controlled at home. The highest number he had at home was 149/90 and runs in the 120s [place] [id number] 08/15/2016 16:24:09 09/05/2016 text/html HPI Notes: The patient is a pleasant 65-year-old male with a past medical history significant for CAD status post stent, paroxysmal atrial fibrillation, carotid artery disease, dyslipidemia, diabetes and hypertension who comes in for follow-up. He is in excellent shape and continues to exercise on a daily basis. Denies any palpitations. his Dm is under excellent control. BP diary is well controlled when he is [place] [address], [place] [address], [facility] 10/16/2016 15:18:31 09/20/2016 text/html HPI Notes: The patient is a pleasant 65-year-old male with a past medical history significant for CAD status post stent, paroxysmal atrial fibrillation, carotid artery disease, dyslipidemia, diabetes and hypertension who comes in for follow-up of his HTN. BP is much better,. but states he feels a bit foggy at times when it gets too low. He is in excellent shape and continues to exercise on a daily basis. Denies [place] [address], [place], [place], [address] [place] [address], [facility] 01/02/2017 21:34:42
== END 2023-05-17 07:29 | disposition home or self-care (01) ==
LOC: NFLDREF 05-22 11:54
PROVIDERS: PCP Family Medicine; Referring Provider Family Medicine; Visit Provider Family Medicine
DX: E78.5 Hyperlipidemia, unspecified (principal); Z79.899 Other long term (current) drug therapy; E11.21 Type 2 diabetes mellitus with diabetic nephropathy; I10 Essential (primary) hypertension
CPT/HCPCS: 80053; 80061; 82043; 82570; 82607

== ENCOUNTER 2023-05-28 07:05 | Outpatient (CLI) | payer MEDICARE, SELFPAY ==
--- OUTSIDE RECORDS SUMMARY | 2023-05-28 07:07 | XMS_ITS | Clinical Summary ---
Author Name Unknown Organization [facility] Address [place], [place] [address] Care Team Providers Care Grey Tender Name Role Phone Bonnie Child MD Primary Care Provider + Allergies Active Allergy Reactions Criticality Noted Date Comments Venom-Honey Bee Anaphylaxis High 10/16/2017 Cephalexin Rash 10/16/2017 Erythromycin Hives 10/16/2017 Insulin Detemir Rash 10/16/2017 Opioids - Morphine Analogues Angioedema 018 Penicillins Anaphylaxis High 10/16/2017 Poison Sayra Extract Rash 10/16/2017 Poison Rice Extract Rash 10/16/2017 Shellfish Derived Hives,Rash 10/16/2017 [...] Influenza for age 65+ 01/11/2023 Care Teams Grey Tender Relationship Specialty Start Date End Date Bonnie Child MD [address] [place] [address] PCP - General Family Practice 10/02/17
--- OUTSIDE RECORDS SUMMARY | 2023-05-28 07:08 | XMS_ITS | Data Portability ---
Author Name Unknown Address [address] [place] [address] Phone [phone] [facility] [place] [facility] [place] Address [address] [place] [address] Care Team Providers Care Special Education Teaching Assistant Name Role Phone JOVANNI ARCE Referring Provider [phone] ZULEIKA GREGG Patient Admitting Clerk JOVANNI ARCE Primary Care Provider Assessment No assessment recorded. Plan of Treatment Reminders Order Date Submit Date Provider Last Modified By Organization Details Last Modified Time Details Appointments None recorded. Lab None recorded. Referral None recorded. Procedures None recorded. Surgeries None recorded. Imaging holter monitor 2016 017 bam Robertson, [address], [place], [address], 7 12:27:34 US, duplex, carotid artery 2016 017 [email or web address] [place], [address], [place], [address], 7 09:58:19 exercise stress echocardio gram 2016 017 [email or web address] [place], [address], [place], [address], 7 09:58:19 electrocar diogram 2016 017 [email or web address] [place], [address], [place], [address], 7 16:39:02 Medication Orders metoprolol succinate ER 50 mg tablet,ext ended release 24 hr 2016 017 INTERFACE [facility] [id number], [address] [place] [address], [address], 7 11:58:24 lisinopril 5 mg tablet 2016 017 INTERFACE [facility] [id number], [address] [place], [address], 7 11:58:22 lisinopril 10 mg tablet [email or web address] [facility] [id number], [address] [place] [address], [address], 8 14:34:25 Patient TargetsNo targets recorded. Patient [...] 0.9-2. 0 Not Available [facility] [place] [facility] [place], [address] 07/12/2016 05:52:14 06/28/19 16 06/28/2015 lipid panel [...] <0.5 mcg/L 0.8-2. 0 low Not Available [facility] [place], [address] 08/17/2016 14:12:05 07/07/19 16 07/08/2015 basic metab olic panel glucose 94 mg/dL 65-99 normal Not Available [facility] [place], [address] 08/17/2016 14:12:04 07/07/19 16 07/08/2015 basic metab olic panel urea nitrogen (BUN) 27 mg/dL 7-25 high Not Available [facility] [place], [address] 08/17/2016 14:12:04 07/07/19 16 07/08/2015 basic metab olic panel creatinine 0.79 mg/dL 0.70-1 .25 normal Not Available [facility] [place], [address] 08/17/2016 14:12:04 07/07/19 16 07/08/2015 basic metab olic panel eGFR non-afr. sudanese 96 mL/mi n/1.7 3m2 > or = 60 normal Not Available [facility] [place], [address] 08/17/2016 14:12:04 07/07/19 16 07/08/2015 basic metab olic panel eGFR 111 mL/mi n/1.7 3m2 > or = 60 normal Not Available [facility] [place], [address] 08/17/2016 14:12:04 07/07/19 16 07/08/2015 basic metab olic panel BUN/creatini ne ratio 34 (calc ) 6-22 high Not Available [facility] [place], [address] 08/17/2016 14:12:04 07/07/19 16 07/08/2015 basic metab olic panel sodium 139 mmol/ L 135-14 6 normal Not Available [facility] [place], [address] 08/17/2016 14:12:04 07/07/19 16 07/08/2015 basic metab olic panel potassium 5.1 mmol/ L 3.5-5. 3 normal Not Available [facility] [place], [address] 08/17/2016 14:12:04 07/07/19 16 07/08/2015 basic metab olic panel chloride 104 mmol/ L 98-110 normal Not Available [facility] [place], [address] 08/17/2016 14:12:04 07/07/19 16 07/08/2015 basic metab olic panel carbon dioxide 31 mmol/ L 19-30 high Not Available [facility] [place], [address] 08/17/2016 14:12:04 07/07/19 16 07/08/2015 basic metab olic panel calcium 9.5 mg/dL 8.6-10 .3 normal Not Available [facility] [place], [address] 08/17/2016 14:12:04 06/27/19 17 12/18/2013 unlis margaret [...] Marcelo [address], [place], [address], 08/15/2016 17:46:40 09/05/19 17 exerc ise stres s echoc ardio gram No observ ation record ed. lbrummond Marcelo [address], [place], [address], 10/02/2016 13:51:20 09/07/19 17 09/06/2016 exerc ise [...] stress . EKG showed freque nt PVCs. [email or web address] Robertson [address], [place], [address], 11/12/2016 11:34:27 09/07/19 17 09/06/2016 exerc ise stres s echoc ardio gram No observ ation record ed. bam Robertson [address], [place], [address], 10/02/2016 13:51:21 09/07/19 17 09/06/2016 US, duple [...] [address], [place], [address], 10/02/2016 13:51:21 09/07/19 17 09/06/2016 US, duple x, carot id arter y No observ ation record ed. bam Robertson [address], [place], [address], 10/02/2016 13:51:21 09/26/19 17 donato r monit or No observ ation record ed. bam Robertson [address], [place], [address], 12/14/2016 10:20:23 Result Notes None recorded. Problems Name Status Onset Date Resolution Date Notes Provider Name and Address Organization Details Recorded Time Pure hypercholesterol emia Active 2009 [facility] 7 21:59:45 Coronary arteriosclerosis Active 2006 PCI [LAD mid Taxus 2.75 X 16, RCA mid taxus 2.5 X 20] - 04/25/2007 Not Available [facility] 7 21:59:45 Paroxysmal atrial fibrillation Active 2009 PAF Not Available [facility] 7 21:59:45 Coronary arteriosclerosis in [place] artery Active 2009 Not Available [facility] 7 [...] Electrocardiogra m abnormal Active 2011 Not Available [facility] 7 21:59:46 History of cardiac catheterization Active 2006 [facility] [EF 60%, LAD mid 70-80%, RCA is Dominant & prox 90-95%] - 04/25/2007 Not Available [facility] 7 21:59:46 Notes:07/04/2015: ReportDisp lay: Moderate ICA Right 30-50-% ReportDisplay: Moderate CCA Bulb Right 30-50%, Problem Notes None recorded. Procedures Surgical History Date Name Laterality Status Provider Name and Address Organization Details Recorded Time 017 Stress Echo (33256) completed Arturo sánchez, [place] - [facility] 11/05/2016 [...] 14:05:47 009 Vascular study completed Not Available [email or web address] 08/03/2016 14:05:47 008 Cardiovascular [...] [address], [place], [address], 08/15/2016 17:46:40 09/04/2016 exercise stress echocardiogram completed lbrummond [place] [address], [place], [address], 10/02/2016 13:51:20 09/06/2016 exercise stress echocardiogram completed [email or web address] Robertson [address], [place], [address], 11/12/2016 11:34:27 09/06/2016 exercise stress echocardiogram completed [email or web address] Robertson [address], [place], [address], 10/02/2016 13:51:21 09/06/2016 US, duplex, carotid artery completed lbrummond [place] [address], [place], [address], 10/02/2016 13:51:21 09/06/2016 US, duplex, carotid artery completed lbrummond [place] [address], [place], [address], 10/02/2016 13:51:21 09/25/2016 holter monitor completed fantasmarummond [place] [address], [place], [address], 12/14/2016 10:20:23 Procedure Notes None recorded. Medical Equipment None Reported. Allergies Allergen ID Allergen Name Allergen Category Reaction Reaction Severity Criticality Documentation Date Start Date Code Code System Note Provider Name and Address Organization Details Recorded Time 711176 erythromy jaime medicatio n Not available Not available Not available 05/10/20162009 4053 RxNorm Not Available [facility] 6 14:34:34 305133 Medicinal product containin g penicilli n and acting as antibacte rial agent (product) medicatio n Not available Not available Not available 05/10/20162009 85442 05 SNOMED Not Available [facility] 6 14:34:34 Medications Name Sig Start Date [...] 3 88 /min 36.8 kg/m2 88 /min 881130. 19332 g 177.8 cm 128 mm[Hg] 80 mm[Hg] Not Available [facility] 7 04:33:30 Date Recorded Heart rate Provider [...] Details Last Updated DateTime 1 72 /min 602232. 63144 g 177.8 cm 38.6 kg/m2 72 /min 16 /min 120 mm[Hg] 88 mm[Hg] Not Available [facility] 7 04:33:33 Date Recorded Heart rate Body weight Body height Body mass index (BMI) Heart rate Respiratory rate Systolic blood pressure Diastolic blood pressure Provider Name and Address Organization Details Last Updated DateTime 1 94 /min 614232. 40964 g 177.8 cm 37 kg/m2 94 /min 17 /min 122 mm[Hg] 86 mm[Hg] Not Available [facility] 7 04:33:32 Date Recorded Heart rate Body weight Body height Body mass index (BMI) Heart rate Respiratory rate Systolic blood pressure Diastolic blood pressure Provider Name and Address Organization Details Last Updated DateTime 0 71 /min 353666. 99475 g 177.8 cm 38.3 kg/m2 71 /min 16 /min 120 mm[Hg] 88 mm[Hg] Not Available [facility] 7 04:32:48 Date Recorded Heart rate Provider Name an d Address Organization Details Last Updated DateTime 01/27/2010 70 /min Not Available [email or web address] Connor [facility] 06/28/2016 08:43:48 Date Recorded Body weight Body height Body mass index (BMI) Heart rate Systolic blood pressure Diastolic blood pressure Provider Name and Address Organization Details Last Updated DateTime 7 424298. 46 g 175.26 cm 37.5 kg/m2 59 /min 180 mm[Hg] 100 mm[Hg] [place] [address], [place], [address], [place] - [facility] 7 16:05:10 Date Recorded Body height Body weight Body mass index (BMI) Heart rate Oxygen saturation Oxygen saturation in Arterial blood by Pulse oximetry Systolic blood pressure Diastolic blood pressure Provider Name and Address Organization Details Last Updated DateTime 7 175.26 cm 127151. 68 g 37.1 kg/m2 76 /min 97 % 97 % 160 mm[Hg] 100 mm[Hg] [place] [address], [place], [address], [place] - [facility] 7 15:45:20 Date Recorded Body height Body weight Body mass index (BMI) Heart rate Oxygen saturation Oxygen saturation in Arterial blood by Pulse oximetry Systolic blood pressure Diastolic blood pressure Provider Name and Address Organization Details Last Updated DateTime 7 175.26 cm 240907. 46 g 37.5 kg/m2 62 /min 97 % 97 % 138 mm[Hg] 86 mm[Hg] Maryjane Goldsmith [facility], [place] - [facility] 7 11:36:26 Date Recorded Oxygen saturation Oxygen saturation in Arterial blood by Pulse oximetry Body weight Body height Body mass index (BMI) Heart rate Systolic blood pressure Diastolic blood pressure Provider Name and Address Organization Details Last Updated DateTime 6 97 % 97 % 15253.9 9007 g 177.8 cm 30.4 kg/m2 59 /min 130 mm[Hg] 78 mm[Hg] Not Available [facility] 7 04:32:48 Date Recorded Heart rate Body weight Body height Body mass index (BMI) Systolic blood pressure Diastolic blood pressure Provider Name and Address Organization Details Last Updated DateTime 5 64 /min 82008.3 5955 g 177.8 cm 30.9 kg/m2 124 mm[Hg] 72 mm[Hg] Not Available [facility] 7 04:33:29 Date Recorded Body weight Body height Body mass index (BMI) Heart rate Systolic blood pressure Diastolic blood pressure Provider Name and Address Organization Details Last Updated DateTime 5 19586.8 4348 g 177.8 cm 29.4 kg/m2 61 /min 126 mm[Hg] 84 mm[Hg] Not Available [facility] 7 04:33:28 Date Recorded Heart rate Oxygen saturation Oxygen saturation in Arterial blood by Pulse oximetry Body weight Body height Body mass index (BMI) Systolic blood pressure Diastolic blood pressure Provider Name and Address Organization Details Last Updated DateTime 4 75 /min 98 % 98 % 606653. 38729 g 177.8 cm 33.2 kg/m2 124 mm[Hg] 84 mm[Hg] Not Available [facility] 7 04:33:29 Date Recorded Heart rate Oxygen saturation Oxygen saturation in Arterial blood by Pulse oximetry Body weight Body height Body mass index (BMI) Systolic blood pressure Diastolic blood pressure Provider Name and Address Organization Details Last Updated DateTime 4 75 /min 92 % 92 % 711340. 56340 g 177.8 cm 35.5 kg/m2 142 mm[Hg] 80 mm[Hg] Not Available [facility] 7 04:33:29 Date Recorded Body height Body mass index (BMI) Heart rate Body weight Systolic blood pressure Diastolic blood pressure Provider Name and Address Organization Details Last Updated DateTime 3 177.8 cm 37.2 kg/m2 121 /min 672386. 753104 g 150 mm[Hg] 98 mm[Hg] Not Available [facility] 7 04:33:30 Date Recorded Body weight Body height Body mass index (BMI) Heart rate Systolic blood pressure Diastolic blood pressure Provider Name and Address Organization Details Last Updated DateTime 3 374810. 59731 g 177.8 cm 37 kg/m2 79 /min 118 mm[Hg] 80 mm[Hg] Not Available [facility] 7 04:33:30 Date Recorded Body weight Body height Body mass index (BMI) Heart rate Respiratory rate Systolic blood pressure Diastolic blood pressure Provider Name and Address Organization Details Last Updated DateTime 2 406148. 19214 g 177.8 cm 37 kg/m2 81 /min 16 /min 130 mm[Hg] 80 mm[Hg] Not Available [facility] 7 04:33:31 Date Recorded Body weight Body height Body mass index (BMI) Heart rate Respiratory rate Systolic blood pressure Diastolic blood pressure Provider Name and Address Organization Details Last Updated DateTime 1 700469. 75834 g 177.8 cm 38.6 kg/m2 72 /min 72 /min 140 mm[Hg] 80 mm[Hg] Not Available [facility] 7 04:33:33 Date Recorded Body height Body mass index (BMI) Heart rate Body weight Systolic blood pressure Diastolic blood pressure Provider Name and Address Organization Details Last Updated DateTime 0 177.8 cm 39 kg/m2 70 /min 531015. 98318 g 120 mm[Hg] 70 mm[Hg] Not Available [facility] 7 04:33:33 Date Recorded Body weight Body height Body mass index (BMI) Heart rate Respiratory rate Systolic blood pressure Diastolic blood pressure Provider Name and Address Organization Details Last Updated DateTime 1 658673. 37486 g 177.8 cm 38.4 kg/m2 105 /min 16 /min 110 mm[Hg] 78 mm[Hg] Not Available [facility] 7 04:33:31 Social History Question Answer Notes [...] Encounter Start Date Encounter Closed Date Diagnosis/Indication [id number] Zuleika Gregg MD [place] [address] [facility] [address] [place] [address] 08/15/2016 15:40:36 08/15/2016 16:39:02 Atrial fibrillation Coronary arteriosclerosis in [place] artery Carotid artery stenosis [id number] [facility] [place] [address] [place] [address] 09/04/2016 14:19:25 09/04/2016 16:28:27 Coronary arteriosclerosis in [place] artery [id number] Arturo Robertson [address] [place] [address] 09/04/2016 14:22:24 09/04/2016 16:30:02 Coronary arteriosclerosis in [place] artery [id number] MD [place] Claire [address] [place] [address] 09/05/2016 15:21:04 09/05/2016 16:27:25 Paroxysmal atrial fibrillation Coronary arteriosclerosis in [place] artery Carotid artery stenosis Benign essential hypertension [id number] MD [place] Claire [address] [place] [address] 09/20/2016 11:16:53 09/20/2016 12:10:01 Benign essential hypertension Paroxysmal atrial fibrillation Coronary arteriosclerosis in [place] artery Carotid artery stenosis [id number] Maryjane Robertson [address] [place] [address] 09/26/2016 10:03:35 11/16/2016 08:21:36 Atrial fibrillation Health Concerns Section Related Observation LastModified by Organization Detai ls LastModified Time None Recorded Concern Status LastModified by Organization Details LastModified Time None Recorded Advance Directives Directive No: Payers Encounter Date Sequence Insurance Name Policy Number Policy Aleman Covered Member ID Aleman Member ID Guarantor Name 09/20/2016 1 [employer] (POS) [id number] Candy K Kimpton [id number] Conner S Kimpton 09/20/2016 1 [employer] (POS) [id number] Candy K Kimpton [id number] Conner S Kimpton 09/05/2016 1 [employer] (POS) [id number] Candy Peter Kimpton [id number] Conner S Kimpton 09/04/2016 1 [employer] (POS) [id number] Candy Green Kimpton [id number] Conner S Kimpton 09/04/2016 1 [employer] (POS) [id number] Candy Cherry [id number] Conner Cherry 08/15/2016 1 [employer] (POS) [id number] Candy Cherry [id number] Conner Cherry Notes Date Note Type [...] the 120s [place] [address] 08/15/2016 16:24:09 09/05/2016 text/html HPI Notes: [...] [place] [address], [place] [address], [facility] 10/16/2016 15:18:31 09/20/2016 text/html HPI Notes: The [...] basis. Denies [place] [address], [place], [place], [address] [place] [address], [facility] 01/02/2017 21:34:42
--- NOTE | 2023-05-28 07:15 | CRLHL7_ITS ---
For Patients: As a result of the Cures Act, medical imaging exams and procedure reports are released immediately into your electronic medical record. You may view this report before your referring provider. If you have questions, please contact your health care provider. TECHNIQUE: Ultrasound of the abdominal aorta. Grayscale and color Doppler images INDICATION: Screening for AAA. FINDINGS: Proximal abdominal aorta: 2.5 cm. Middle aorta: 1.7 cm. Distal aorta: 1.3 cm. Right iliac artery: 0.9 cm. Left iliac artery: 1.1 cm. IMPRESSION: No evidence for abdominal aortic aneurysm. Dictated by Juwan Botello MD @ 05/28/2023 9:58:18 AM (Electronically Signed)
== END 2023-05-28 07:06 | disposition home or self-care (01) ==
PROVIDERS: PCP Family Medicine; Visit Provider Family Medicine
DX: Z13.6 Encounter for screening for cardiovascular disorders (principal)
CPT/HCPCS: 76706

== ENCOUNTER 2023-09-24 07:35 | Outpatient (CLI) | payer MEDICARE, SELFPAY ==
--- OUTSIDE RECORDS SUMMARY | 2023-09-25 07:07 | XMS_ITS | Clinical Summary ---
Author Name Unknown Organization [facility] Address [place], [place] [address] Care Team Providers Care Tool Room Gear Machine Operator Name Role Phone Bonnie Child MD Primary Care Provider + Allergies Active Allergy Reactions Criticality Noted Date Comments Venom-Honey Bee Anaphylaxis High 10/16/2017 Cephalexin Rash 10/16/2017 Erythromycin Hives 10/16/2017 Insulin Detemir Rash 10/16/2017 Opioids - Morphine Analogues Angioedema 018 Penicillins Anaphylaxis High 10/16/2017 Poison Sayra Extract Rash 10/16/2017 Poison Sayner Extract Rash 10/16/2017 Shellfish Derived Hives,Rash 10/16/2017 Medications Medication Sig Dispensed Refills Start Date End Date Status apixaban 5 mg (74 tabs) DsPk Take 5 mg by mouth 2 times daily. 10/02/2017 Active aspirin (ECOTRIN) 81 mg enteric coated tablet Take 81 mg by mouth once daily. 10/02/2017 Active lisinopril (PRINIVIL; ZESTRIL) 10 mg tablet Take 7.5 mg by mouth 2 times daily. 10/02/2017 Active lisinopril (PRINIVIL; ZESTRIL) 5 mg tablet Take 7.5 mg by mouth 2 times daily. 10/02/2017 Active simvastatin (ZOCOR) 40 mg tablet Take 40 mg by mouth once daily. 10/02/2017 Active metoprolol succinate (TOPROL XL) 50 mg sustained-release tablet Take 150 mg by mouth once daily. 10/02/2017 Active insulin detemir U-100 (LEVEMIR) 100 unit/mL (3 mL) pen Inject 20 Units subcutaneous once daily with a meal. 10/02/2017 Active NOVOLOG U-100 INSULIN ASPART SUBQ Inject 6 Units subcutaneous once daily. 10/02/2017 Active ketoconazole 2% shampoo (NIZORAL) 2 % shampoo Apply topically to affected area(s) once daily. Lather on damp scalp, leave on for 5min, then rinse with water. 1 Bottle 10/16/2017 Active triamcinolone (ARISTOCORT; KENALOG) 0.1 % cream Apply topically to affected area(s) 3 times daily. 1 Tube 10/16/2017 Active Active Problems Problem Noted Date [...] Health Maintenance Due Date Last Done Comments Tdap 09/10/1961 Depression screening for age 12+ [...] 65+ (1 of 1 - PCV) 017 COVID-19 vaccine series ( season) 3 Influenza for age 65+ 01/12/2024 Care Teams Tool Room Gear Machine Operator Relationship Specialty Start Date End Date Bonnie Child MD [address] [place] [address] PCP - General Family Practice 10/02/17
== END 2023-09-24 07:36 | disposition home or self-care (01) ==
LOC: NFLDREF 09-25 07:06
PROVIDERS: PCP Family Medicine; Referring Provider Family Medicine; Visit Provider Family Medicine
DX: E11.21 Type 2 diabetes mellitus with diabetic nephropathy (principal); I10 Essential (primary) hypertension; E66.01 Morbid (severe) obesity due to excess calories; E78.00 Pure hypercholesterolemia, unspecified; Z12.5 Encounter for screening for malignant neoplasm of prostate
CPT/HCPCS: 80053; 82043; 82570; G0103

== ENCOUNTER 2023-11-20 07:29 | Outpatient (CLI) | payer MEDICARE, SELFPAY ==
--- OUTSIDE RECORDS SUMMARY | 2023-11-20 11:28 | XMS_ITS | Clinical Summary ---
Author Organization [facility] Address [place], [place] [address] Care Team Providers Care Pilot Captain Name Role Phone Bonnie Child MD Primary Care Provider + Allergies Active Allergy Reactions Criticality Noted Date Comments Venom-Honey Bee Anaphylaxis High 10/16/2017 Cephalexin Rash 10/16/2017 Erythromycin Hives 10/16/2017 Insulin Detemir Rash 10/16/2017 Opioids - Morphine Analogues Angioedema 018 Penicillins Anaphylaxis High 10/16/2017 Poison Sayra Extract Rash 10/16/2017 Poison Gotha Extract Rash 10/16/2017 Shellfish Derived Hives,Rash 10/16/2017 [...] Influenza for age 65+ 01/12/2024 Care Teams Pilot Captain Relationship Specialty Start Date End Date Bonnie Child MD [address] [place] [address] PCP - General Family Practice 10/02/17
== END 2023-11-20 07:30 | disposition home or self-care (01) ==
LOC: NFLDREF 11:26
PROVIDERS: PCP Family Medicine; Referring Provider Family Medicine; Visit Provider Family Medicine
DX: R53.83 Other fatigue (principal); E11.21 Type 2 diabetes mellitus with diabetic nephropathy; I10 Essential (primary) hypertension
CPT/HCPCS: 80048; 84443

== ENCOUNTER 2024-02-03 07:30 | Outpatient (CLI) | payer MEDICARE, SELFPAY ==
--- OUTSIDE RECORDS SUMMARY | 2024-02-06 11:39 | XMS_ITS | Data Portability ---
Author Organization [facility] Address [address] [place] [address] Care Team Providers Care Cover Machine Operator Name Role Phone JOVANNI ARCE Referring Provider ZULEIKA GREGG Systems Software Developer JOVANNI ARCE Primary Care Provider [phone] Assessment No assessment recorded. Plan of Treatment Reminders Order Date Submit Date Provider Last Modified By Organization Details Last Modified Time Details Appointments None recorded. Lab None recorded. Referral None recorded. Procedures None recorded. Surgeries None recorded. Imaging US, duplex, carotid artery 2016 017 [email or web address] Marcelo, [address], [place], [address], 7 09:58:19 exercise stress echocardio gram 2016 017 [email or web address] Robertson, [address], [address], [place], [address], 7 09:58:19 holter monitor 2016 017 bam Marcelo, [address], [address], [address] Floor, [place], [address], 7 12:27:34 Medication Orders lisinopril 10 mg tablet [address] [facility] [id number], [address] [place], [address], 8 14:34:25 metoprolol succinate ER 50 mg tablet,ext ended release 24 hr 2016 017 INTERFACE [facility] [id number], [address] [place], [address], 7 11:58:24 lisinopril 5 mg tablet 2016 017 INTERFACE [facility] [id number], [address] [place], [address], 7 11:58:22 Patient TargetsNo targets recorded. Patient InstructionsNo instructions recorded. Reason for Referral None Reported. Results Created Date Observation Date Name Description Value Unit Range Abnormal Flag Note LastModifiedBy Organization Detail LastModifiedTime 08/16/19 17 elect rocar diogr am No observ ation record ed. [email or web address] Robertson [address] Floor, [place], [address], 08/15/2016 17:46:40 09/05/19 17 exerc ise stres s echoc ardio gram No observ ation record ed. bam Robertson [address], [address], [place], [address], 10/02/2016 13:51:20 09/07/19 17 09/06/2016 exerc ise [...] stress . EKG showed freque nt PVCs. [email or web address] Marcelo [address], [address], [place], [address], 11/12/2016 11:34:27 09/07/19 17 09/06/2016 exerc ise stres s echoc ardio gram No observ ation record ed. [email or web address] Marcelo [address], [address], [address] Floor, [place], [address], 10/02/2016 13:51:21 09/07/19 17 09/06/2016 US, ericale x, carot id arter y 1. 40-45% [...] Robertson [address] Floor, [place], [address], 10/02/2016 13:51:21 09/07/19 17 09/06/2016 US, duple x, carot id arter y No observ ation record ed. bam Robertson [address], [address] Floor, [place], [address], 10/02/2016 13:51:21 09/26/19 17 donato r monit or No observ ation record ed. bam [address], [address], [place], [address], 12/14/2016 10:20:23 Result Notes None recorded. Problems Name Problem SNOMED Code Status Onset Date Resolution Date Notes Provider Name and Address Organization Details Recorded Time Pure hyperchol esterolem ia 060491687 Active 2009 [facility] Coronary arteriosc lerosis 84292546 Active 2006 PCI [LAD mid Taxus 2.75 X 16, RCA mid taxus 2.5 X 20] - 7 [facility] Available [facility]:59[facility]45 Paroxysma l atrial fibrillat ion 394745951 Active 2009 PAF Not Available [facility] 7 21:59:45 Coronary arteriosc lerosis in [place] artery 87666640461 07 Active 2009 Not Available [facility] 7 21:59:45 Benign essential hypertens ion 5264348 Active 2009 Not Available [facility] 7 21:59:46 Atrial fibrillat ion 91451612 Active 2010 Not Available [facility] 7 21:59:46 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 23750428 Active 2012 Not Available [facility] 7 21:59:46 Permanent atrial fibrillat ion 887793921 Active 2015 Not Available [facility] 7 21:59:46 Dyslipide carmen 468748933 Active 2009 Dyslipide carmen [Type: Cholester ol] Not Available [facility] 7 21:59:46 Diabetes mellitus 86983474 Active 2012 Diabetes Not Available [facility] 7 21:59:46 Hypertens janette disorder 66843005 Active 2012 Hypertens ion Not Available [facility] 7 21:59:46 Type 2 diabetes mellitus 92322588 Active 2009 Not Available [facility] 7 21:59:46 Electroca rdiogram abnormal 188615397 Active 2011 Not Available [facility] 7 21:59:46 History of cardiac catheteri zation 12133017813 100 Active 2006 LHC [EF 60%, LAD mid 70-80%, RCA is Dominant & prox 90-95%] - 7 Not Available [facility] 7 21:59:46 Notes:07/04/2015: ReportDisp lay: Moderate ICA Right 30-50-% ReportDisplay: Moderate CCA Bulb Right 30-50%, Problem Notes None recorded. Procedures Surgical History Date Name Laterality Status Provider Name and Address Organization Details Recorded Time 017 Stress Echo (93304) completed Arturo [facility] [place] [facility] 11/05/2016 16:49:33 017 Carotid Duplex completed Avi Weems [place] - [facility] 11/12/2016 11:35:26 016 Tte w/doppler complete completed Not Available [place] [facility] 08/03/2016 14:05:47 016 Vascular study completed Not Available [place] 08/03/2016 14:05:47 015 Electrocardiogram complete completed Not Available [place] 08/03/2016 14:05:47 014 Electrocardiogram complete completed Not Available [place] 08/03/2016 14:05:47 013 Vascular [...] 008 Cardiovascular stress test completed Not Available [email or web address] 08/03/2016 14:05:47 008 Electrocardiogram complete completed Not Available [email or web address] 08/03/2016 14:05:47 007 Left heart catheterization completed Not Available [email or web address] 08/03/2016 14:05:47 007 Left heart catheterization completed Not Available [email or web address] 08/03/2016 14:05:47 007 Cardiovascular stress test completed Not Available [email or web address] 08/03/2016 14:05:48 007 Tte w/doppler complete completed Not Available [email or web address] 08/03/2016 14:05:48 Imaging Results Imaging Date Name Status LastModified by Organization Details LastModified Time 08/15/2016 electrocardiogram completed juan miguel Robertson [address] Floor, [place], [address], 08/15/2016 17:46:40 09/04/2016 exercise stress echocardiogram completed [email or web address] Robertson [address], [address], [address], [place], [address], 10/02/2016 13:51:20 09/06/2016 exercise stress echocardiogram completed rashid Robertson [address], [address] [facility], [place], [address], 11/12/2016 11:34:27 09/06/2016 exercise stress echocardiogram completed bam Robertson [address], [address] [facility], [place], [address], 10/02/2016 13:51:21 09/06/2016 US, duplex, carotid artery completed [email or web address] Robertson [address], [address] [facility], [place], [address], 10/02/2016 13:51:21 09/06/2016 US, duplex, carotid artery completed [email or web address] Robertson [address], [address], [address] Floor, [place], [address], 10/02/2016 13:51:21 09/25/2016 holter monitor completed [email or web address] Robertson [address], [address] [facility], [place], [address], 12/14/2016 10:20:23 Procedure Notes None recorded. Medical Equipment None Reported. Allergies Allergen ID Allergen Name Allergen Category Reaction Reaction Severity Criticality Documentation Date Start Date Code Code System Note Provider Name and Address Organization Details Recorded Time 812492 erythromy jaime medicatio n Not available Not available Not available 05/10/20162009 4053 RxNorm Not Available [facility] 6 14:34:34 404630 Medicinal product containin g penicilli n and acting as antibacte rial agent (product) medicatio n Not available Not available Not available 05/10/20162009 96670 05 SNOMED Not Available [facility] 6 14:34:34 Medications Name Sig Start Date [...] Not Available Not Available Vitals Date Recorded Body height Body weight Body mass index (BMI) Heart rate Oxygen saturation Oxygen saturation in Arterial blood by Pulse oximetry Systolic blood pressure Diastolic blood pressure Provider Name and Address Organization Details Last Updated DateTime 7 175.26 cm 078065. 68 g 37.1 kg/m2 76 /min 97 % 97 % 160 mm[Hg] 100 mm[Hg] [place] [address], [place], [address], [place] - [facility] 7 15:45:20 Date Recorded Body height Body weight Body mass index (BMI) Heart rate Oxygen saturation Oxygen saturation in Arterial blood by Pulse oximetry Systolic blood pressure Diastolic blood pressure Provider Name and Address Organization Details Last Updated DateTime 7 175.26 cm 424838. 46 g 37.5 kg/m2 62 /min 97 % 97 % 138 mm[Hg] 86 mm[Hg] Maryjane Goldsmith [place] - [facility] 7 11:36:26 Social History Question Answer Notes LastModified by Organizat ion Details LastModified Time Tobacco Smoking Status Not [facility] 06/27/2016 15:08:17 Do You Have An [...] Occasionally [email or web address] Information not available 06/27/2016 Sex: Unknown Functional Status None recorded. Mental Status None recorded. Family History Relationship Description Onset Age of this Age Resolved Age Notes LastModified by Organization Details LastModified Time Father Atrial fibrillation [email or web address] Not available 20:37:14 Mother Cerebrovascu lar accident [email or web address] Not available 20:37:15 Father Insertion of cardiac biventricula r permanent pacemaker (PPM) using fluoroscopic guidance [email or web address] Not available 2016 20:37:15 Medical History No medical history recorded. Past Encounters Encounter ID Performer Location Encounter Start Date Encounter Closed Date Diagnosis/Indication Diagnosis SNOMED-CT Code Diagnosis ICD10 Code [id number] MD Marcelo Claire [address], [address] [place] [address] 08/15/2016 15:40:36 08/15/2016 16:39:02 Atrial fibrillation 01220765 I48.91 Coronary arteriosclerosis in [place] artery 7239824347 107 I25.10 Carotid ar shirley stenosis 16995775 I65.23 [id number] Arturo Robertson [address], [address], [address] [place] [address] 09/04/2016 14:19:25 09/04/2016 16:28:27 Coronary arteriosclerosis in [place] artery 7501492925 107 I25.10 [id number] Arturo Robertson [address], [address], [address] [place] [address] 09/04/2016 14:22:24 09/04/2016 16:30:02 Coronary arteriosclerosis in [place] artery 4189712910 107 I25.10 [id number] MD Marcelo Claire [address], [address], [address] [place] [address] 09/05/2016 15:21:04 09/05/2016 16:27:25 Paroxysmal atrial fibrillation 527212355 I48.0 Coronary arteriosclerosis in [place] artery 6687423779 107 I25.10 Carotid ar shirley stenosis 88125172 I65.23 Benign ess ential hypertension 3717100 I10 [id number] Zuleika Gregg MD Marcelo [address], [address], [address] [place] [address] 09/20/2016 11:16:53 09/20/2016 12:10:01 Benign essential hypertension 7345391 I10 Paroxysmal atrial fibrillation 103145447 I48.0 Coronary arteriosclerosis in [place] artery 2859781467 107 I25.10 Carotid ar shirley stenosis 92287024 I65.23 [id number] Maryjane Goldsmith Marcelo [address], [address], [address] [place] [address] 09/26/2016 10:03:35 11/16/2016 08:21:36 Atrial fibrillation 26541360 I48.91 Health Concerns Section Related Observation LastModified by Organization Detai ls LastModified Time None Recorded Concern Status LastModified by Organization Details LastModified Time None Recorded Advance Directives Directive No: Payers Encounter Date Sequence Insurance Name Policy Number Policy Aleman Covered Member ID Aleman Member ID Guarantor Name 09/04/2016 1 [employer] (POS) [id number] Candy Peter Kimmontrell [id number] 4 Conner Cherry 09/04/2016 1 [employer] (POS) [id number] Candyvineet Cherry [id number] 4 Conner Cherry 09/05/2016 1 [employer] (POS) [id number] Candy Peter Kimpton [id number] 4 Conner Cherry 09/20/2016 1 [employer] (POS) [id number] Candy Peter Kimpton [id number] 4 Conner Cherry 09/20/2016 1 [employer] (POS) [id number] Candy Applicasa Kimpton [id number] 4 Conner Cherry Notes Date Note Type Note Provider Name and Address Organization Details Recorded Time 09/05/2016 text/html HPI Notes: The patient is [...] [place] [address], [place], [address], [facility] 10/16/2016 15:18:31 09/20/2016 text/html HPI Notes: The [...] basis. [place]ies [place] [address], [place], [address], [facility] 01/02/2017 21:34:42
--- OUTSIDE RECORDS SUMMARY | 2024-02-06 11:39 | XMS_ITS | Clinical Summary ---
Author Organization [employer] [facility] Address [place], [place] [address] Care Team Providers Care Rental Management Trainee Name Role Phone Bonnie Child MD Primary Care Provider + Allergies Active Allergy Reactions Criticality Noted Date Comments Venom-Honey Bee Anaphylaxis High 10/16/2017 Cephalexin Rash 10/16/2017 Erythromycin Hives 10/16/2017 Insulin Detemir Rash 10/16/2017 Opioids - Morphine Analogues Angioedema 018 Penicillins Anaphylaxis High 10/16/2017 Poison Sayra Extract Rash 10/16/2017 Poison [place] Extract Rash 10/16/2017 Shellfish Derived Hives,Rash 10/16/2017 [...] PCV) 017 COVID-19 vaccine series ( season) 4 Influenza for age 65+ 01/12/2024 Care Teams Rental Management Trainee Relationship Specialty Start Date End Date Bonnie Child MD [address] [place] [address] PCP - General Family Practice 10/02/17
== END 2024-02-03 07:31 | disposition home or self-care (01) ==
LOC: NFLDREF 02-06 11:37
PROVIDERS: PCP Family Medicine; Referring Provider Family Medicine; Visit Provider Family Medicine
DX: I10 Essential (primary) hypertension (principal); E11.21 Type 2 diabetes mellitus with diabetic nephropathy; E78.00 Pure hypercholesterolemia, unspecified; E78.5 Hyperlipidemia, unspecified; Z12.5 Encounter for screening for malignant neoplasm of prostate; Z79.899 Other long term (current) drug therapy
CPT/HCPCS: 80053; 82043; 82570

== ENCOUNTER 2024-05-26 07:25 | Outpatient (CLI) | payer MEDICARE, SELFPAY | END 2024-05-26 07:26 | disposition home or self-care (01) | LOC: NFLDREF 06-02 00:45 | PROVIDERS: PCP Family Medicine; Referring Provider Family Medicine; Visit Provider Family Medicine | DX: E11.21 Type 2 diabetes mellitus with diabetic nephropathy (principal); I10 Essential (primary) hypertension; E78.00 Pure hypercholesterolemia, unspecified; R80.9 Proteinuria, unspecified; Z79.899 Other long term (current) drug therapy; Z12.5 Encounter for screening for malignant neoplasm of prostate | CPT/HCPCS: 80053; 80061; 82043; 82570; 82607; G0103 ==

== ENCOUNTER 2024-06-04 07:06 | Outpatient (CLI) | payer MEDICARE, SELFPAY ==
--- NOTE | 2024-06-04 08:26 | P.ANES_ITS ---
Anesthesia Charges Start Date/Time Anesthesia Start Date: 06/04/24 Anesthesia Start Time: 08:08 Stop Date/Time Anesthesia Stop Date: 06/04/24 Anesthesia Stop Time: 08:24 Coding CPT Codes CPT Codes: ANES UPR GI NDSC PX NOS - 40106 ([id number]) P3 - PATIENT W/SEVERE SYS DISEASE, QK - HOUSE PIPING INSPECTOR 2-4 CNCRNT ANES PROC, QX - PRECISION PRINTING WORKER SVC W/ MD MED DIRECTION
--- NOTE | 2024-06-04 08:26 | W.ANESCHARGE ---
Anesthesia Charges Start Date/Time Anesthesia Start Date: 06/04/24 Anesthesia Start Time: 08:08 Stop Date/Time Anesthesia Stop Date: 06/04/24 Anesthesia Stop Time: 08:24 Coding CPT Codes CPT Codes: ANES UPR GI NDSC PX NOS - 85064 ([id number]) P3 - PATIENT W/SEVERE SYS DISEASE, QK - DATA ENTRY 2-4 CNCRNT ANES PROC, QX - SANTA'S HELPER SVC W/ MD MED DIRECTION
--- NOTE | 2024-06-04 08:37 | P.ANES_ITS ---
Anesthesia Charges Start Date/Time Anesthesia Start Date: 06/04/24 Anesthesia Start Time: 08:08 Stop Date/Time Anesthesia Stop Date: 06/04/24 Anesthesia Stop Time: 08:24 Summary Extremes of Age - Over 70 or under 1: MDA Coding CPT Codes CPT Codes: ANES UPR GI NDSC PX NOS - 14140 ([id number]) QK - SENIOR DATA WAREHOUSE DEVELOPER 2-4 CNCRNT ANES PROC, QX - GUEST SERVICES COORDINATOR SVC W/ MD MED DIRECTION, P3 - PATIENT W/SEVERE SYS DISEASE Additional Codes: Summary - Extremes of Age - Over 70 or under 1: MDA ([id number])
== END 2024-06-04 07:07 | disposition home or self-care (01) ==
LOC: OP CLINIC 07:06
PROVIDERS: PCP Family Medicine; Visit Provider Surgery
DX: R11.0 Nausea (principal)
CPT/HCPCS: 00731; 43239; 88305; 99100; J2704; J3490

== ENCOUNTER 2024-12-01 07:54 | Outpatient (CLI) | payer MEDICARE, SELFPAY | END 2024-12-01 07:55 | disposition home or self-care (01) | LOC: NFLDREF 12-02 16:09 | PROVIDERS: PCP Family Medicine; Referring Provider Family Medicine; Visit Provider Family Medicine | DX: E11.21 Type 2 diabetes mellitus with diabetic nephropathy (principal); I10 Essential (primary) hypertension; R79.89 Other specified abnormal findings of blood chemistry; E78.00 Pure hypercholesterolemia, unspecified | CPT/HCPCS: 80053; 82043; 82570; 82607 ==

== ENCOUNTER 2025-01-25 22:50 | Emergency (ER) | payer MEDICARE, SELFPAY ==
--- OUTSIDE RECORDS SUMMARY | 2025-01-25 22:52 | XMS_ITS | Clinical Summary ---
Author Organization [employer] [facility] Address [address] [place] [id number] Care Team Providers Care Architect Manager Name Role Phone Bonnie Child MD Primary Care Provider + Stanley Wells MD Unavailable Bharti Corona Unavailable Rolando Muse MD Unavailable [phone] Allergies Active Allergy Reactions Criticality Noted Date Comments Venom-Honey Bee Anaphylaxis High 10/16/2017 Cephalexin Rash 10/16/2017 Erythromycin Hives 10/16/2017 Insulin Detemir Rash 10/16/2017 Opioids - Morphine Analogues Angioedema 10/16/2017 Penicillins Anaphylaxis High 10/16/2017 Poison Sayra Extract Rash 10/16/2017 Poison Dewy Rose Extract Rash 10/16/2017 Shellfish Derived Hives,Rash 10/16/2017 Tamsulosin Shortness Of Breath,Contact Dermatitis,Edema High 12/23/2024 Medications apixaban 5 mg (74 tabs) DsPk Take 5 mg by mouth 2 times daily. 8 Active aspirin (ECOTRIN) 81 mg enteric coated tablet Take 81 mg by mouth once daily. 8 Active lisinopril (PRINIVIL; ZESTRIL) 10 mg tablet Take 7.5 mg by mouth 2 times daily. 8 Active lisinopril (PRINIVIL; ZESTRIL) 5 mg tablet Take 7.5 mg by mouth 2 times daily. 8 Active simvastatin (ZOCOR) 40 mg tablet Take 40 mg by mouth once daily. 8 Active metoprolol succinate (TOPROL XL) 50 mg sustained-releas e tablet Take 150 mg by mouth once daily. 8 Active insulin detemir U-100 (LEVEMIR) 100 unit/mL (3 mL) pen Inject 20 Units subcutaneous once daily with a meal. 8 Active NOVOLOG U-100 INSULIN ASPART SUBQ Inject 6 Units subcutaneous once daily. 8 Active ketoconazole 2% shampoo (NIZORAL) 2 % shampoo Apply topically to affected area(s) once daily. Lather on damp scalp, leave on for 5min, then rinse with water. 1 Bottle 8 Active triamcinolone (ARISTOCORT; KENALOG) 0.1 % cream Apply topically to affected area(s) 3 times daily. 1 Tube 8 Active cetirizine 10 mg tablet Take 1 Tablet by mouth two times daily. 5 Active lisinopriL 40 mg tablet Take 1 Tablet by mouth once daily. 5 Active rosuvastatin 10 mg tablet Take 1 Tablet by mouth once daily. 5 Active Trulicity 1.5 mg/0.5 mL subcutaneous pen Inject 1.5 mg subcutaneous once weekly. 5 Active metFORMIN 500 mg Extended-Release tablet Take 1,500 mg by mouth. 5 Active chlorthalidone 25 mg tablet Take 1 Tablet by mouth once daily. 5 Active glimepiride 1 mg tablet Take 1 mg by mouth once daily with a meal. 5 Active Active Problems Problem Noted Date Diagnosed Date HTN (hypertension) 12/10/2024 Frequency of micturition 09/21/2024 Right flank pain 09/21/2024 Poor urinary stream 09/21/2024 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 09/21/2024 Thoracic aortic ectasia 11/17/2018 Chronic atrial fibrillation 11/17/2018 Type 2 diabetes mellitus wit hout complication, with long-term current use of insulin 11/17/2018 Encounters Date Type Department Care Team Description 01/21/2025 10:30 AM CDT Procedure Only [address] [place] [address] Rolando Muse MD Procedure (Cysto/TRUS sizing) 01/21/2025 Travel 01/19/[address] [phone] Rolando Muse MD requesting a call (Patient is want to speak with the Provider ) 01/16/2025 Travel 12/23/2024 8:30 AM CDT Office Visit [address] [phone] Bharti Corona PA Follow Up (3 month follow up to reassess urinary symptoms) 12/23/2024 Travel 12/18/2024 Travel 12/10/2024 10:00 AM CDT Office Visit [facility] & [address] [address] Darwin Nunez MD 12/10/2024 Orders Only [facility] Scanner 1 scan: (1-Ord) 12/10/2024 12/10/2024 Orders Only [facility] Scanner 1 scan: (1-Ord) 12/10/2024 from Last 3 Months Social History Tobacco Use Types Packs/Day Years Used Date Smoking Tobacco: Former Pipe 0 05/13/1973 - 05/13/1990 Smokeless Tobacco: Never Tobacco Cessation:Counseling Given: Not Answered Alcohol Use Standard Drinks/Week Comments Yes 0 (1 standard drink = 0.6 oz pur e alcohol) occas Alcohol Use Answer Date Recorded How often do you have a drink containing alcohol ? 0 01/21/2025 Average Number of Drinks Not on file 025 Frequency of Binge Drinking Not on file 01/11 Sex and Gender Information Value Date Recorded Sex Assigned at Not on file Legal Sex Male 2:06 PM CDT Gender Identity Not on file Sexual Orientation Not on file Obstetrics History Last Filed Vital Signs Vital Sign Reading Time Taken Comments Blood Pressure 128/70 12/23/2024 8:41 AM CDT Pulse 66 12/23/2024 8:41 AM CDT Temperature 36.7 C (98.1 F) 10/16/2017 9:34 AM CDT Respiratory Rate - - Oxygen Saturation 97% 10/16/2017 9:34 AM CDT Inhaled Oxygen Concentration - - Weight 136.1 kg (300 lb) 12/23/2024 8:41 AM CDT Height - - Body Mass Index - - Plan of Treatment Upcoming Encounters Date Type Department Care Team (Late st Contact Info) Description 07/22/2025 9:00 AM CDT Office Visit [facility] [address] [place] [address] Rolando Muse MD [address] [place] [address] Health Maintenance Due Date Last Done Comments Tetanus booster 09/10/1962 Depression screening for age 12+ 1963 BMI (ht and wt on same day) for age 18+ 09/10/1969 Hepatitis C screening for age 18-79 09/10/1969 Pneumococcal series for age 50+ (1 of 2 - PCV) 09/10/1970 Colonoscopy through age 75 09/10/1996 Lipids for age 45-75 09/10/1996 Zoster (shingles) series for age 50+ (1 of 2) 09/10/2001 RSV vaccine for adults or (1 - Risk 60-74 years 1-dose series) 2011 Medicare Wellness for age 65+ 09/10/2016 Influenza Vaccine (#1) 2025 COVID-19 vaccine series Completed 07/07/19, 01/31/2024, 04/25/2023, Additional history exists AAA screening age 65-74 Completed 10/01/2024 Hepatitis B series for 19+ Aged Out N o longer eligible based on patient's age to complete this topic Procedures Procedure Name Priority Date/Time Associated Diagnosis Comments NM SHELIA POST-VOIDING RESIDUAL URINE&/BLADDER CAP Routine 12/23/2024 12:00 AM CDT 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 SCAN-ELECTROCARDIOG TROY EKG 12/10/2024 12:00 AM CDT SCAN-ELECTROCARDIOG TROY EKG 12/10/2024 12:[address] ABDOMEN PELVIS STONE PROTOCOL WO Routine 10/01/2024 8:16 AM CDT Right flank pain from Last 3 Months or Most Recently Relevant to Health Maintenance Results * NM SHELIA POST-VOIDING RESIDUAL URINE&/BLADDER CAP (12/23/2024 12:00 AM CDT) us Bhartivineet JIMENES PB - URINARY SYSTEM SERVI YRUIY Final Result * SCAN-ELECTROCARDIOGRAM EKG (12/10/2024 12:00 AM CDT) Only the most recent of2 resultswithin the time period is included. us Scanner OTHER Final Result * CT ABDOMEN PELVIS STONE PROTOCOL WO (10/01/2024 8:16 AM CDT) Anatomical Region Laterality Modality Abdomen, Pelvis, AORTA, LIVER, SPLEEN Computed Tomography 10/01/2024 8:45 AM CDT Impressions 10/01/2024 8:45 AM CDT 1. 6.5 cm left renal cyst. Streaking in the perirenal fat may be due to previous infection. No other noted abnormality. No stones or hydronephrosis. 2. Prostatomegaly. 3. Elevation right hemidiaphragm with right basilar atelectasis could potentiate right flank pain. Please note that all CT scans at this facility use dose modulation, iterative reconstruction, and/or weight-based dosing when appropriate to reduce radiation dose to as low as reasonably achievable. Dictated by Linda Hui MD @ 10/01/2024 8:45:44 AM (Electronically Signed) Narrative 10/01/2024 8:45 AM CDT For Patients: As a result of the Century Cures Act, medical imaging exams and procedure reports are released immediately into your electronic medical record. You may view this report before your referring provider. If you have questions, please contact your health care provider. INDICATION: Right flank pain TECHNIQUE: CT abdomen and pelvis without contrast. COMPARISON: None FINDINGS: Lower chest: Elevation right hemidiaphragm with compressive atelectasis right lung base. Liver: Unremarkable. Spleen: Unremarkable. Pancreas: Unremarkable. Gallbladder and bile ducts: Unremarkable. Kidneys: 6.5 cm round mass inferior left kidney has Hounsfield numbers consistent with a cyst. Streaking in the perirenal fat bilaterally may be due to prior infection. No obvious renal cortical destruction suspicious mass, stones or hydronephrosis. Adrenal glands: Unremarkable. GI tract: Colon and small bowel normal. Appendix not identified. No focal inflammation or obstructive pattern. Vascular structures: Calcified aorta. No aneurysm. Lymph nodes: Unremarkable. Miscellaneous: Unremarkable. No free air or significant free fluid. No abdominal wall or inguinal hernia. Pelvic Organs: Prostatomegaly. Bladder normal. Bones: Degenerative spine. No lytic or osteoblastic lesions. Procedure Note Himanshu Hui MD - 10/01/2024 For Patients: As a result of the Cures Act, medical imagingexams and procedure reports are released immediately into your electronicmedical record. You may view this report before your referring provider.If you have questions, please contact your health care provider. INDICATION: Right flank pain TECHNIQUE: CT abdomen and pelvis without contrast. COMPARISON: None FINDINGS: Lower chest: Elevation right hemidiaphragm with compressive atelectasisright lung base. Liver: Unremarkable. Spleen: Unremarkable. Pancreas: Unremarkable. Gallbladder and bile ducts: Unremarkable. Kidneys: 6.5 cm round mass inferior left kidney has Hounsfield numbersconsistent with a cyst. Streaking in the perirenal fat bilaterally may bedue to prior infection. No obvious renal cortical destruction suspiciousmass, stones or hydronephrosis. Adrenal glands: Unremarkable. GI tract: Colon and small bowel normal. Appendix not identified. No focalinflammation or obstructive pattern. Vascular structures: Calcified aorta. No aneurysm. Lymph nodes: Unremarkable. Miscellaneous: Unremarkable. No free air or significant free fluid. Noabdominal wall or inguinal hernia. Pelvic Organs: Prostatomegaly. Bladder normal. Bones: Degenerative spine. No lytic or osteoblastic lesions. IMPRESSION: 1. 6.5 cm left renal cyst. Streaking in the perirenal fat may be due toprevious infection. No other noted abnormality. No stones orhydronephrosis. 2. Prostatomegaly. 3. Elevation right hemidiaphragm with right basilar atelectasis couldpotentiate right flank pain. Please note that all CT scans at this facility use dose modulation,iterative reconstruction, and/or weight-based dosing when appropriate toreduce radiation dose to as low as reasonably achievable. Dictated by Linda Hui MD @ 10/01/2024 8:45:44 AM (Electronically Signed) Stanley Wells MD CT Final Result from Last 3 Months or Most Recently Relevant to Health Maintenance Insurance [facility] MR Care Teams Architect Manager Relationship Specialty Start Date End Date Bonnie Child MD [address] [place] [address] PCP - General Family Practice 10/02/17 [place] [address] Surgery - Urology 09/21/24 [place] [address] Physician Muffler Hand 12/23/24 [place] [address] Surgery - Urology 01/21/25
[2025-01-25 22:55] VITALS: BP 165/92; PULSE 74; RESP 20; TEMP 35.8; O2SAT 97; BMI 45.2
--- NOTE | 2025-01-25 23:05 | ED.BACK ---
HPI - Back Pain/Injury General Time Seen by Provider: 23:06 Date Seen: 01/25/25 Chief Complaint: Back Injury/Pain Stated Complaint: L neck/head pain Time Seen by Provider: 01/25/25 23:01 Source: patient and RN notes reviewed Mode of arrival: ambulatory Limitations: no limitations History of Present Illness HPI Narrative: This 74-year-old male is coming in with left-sided neck pain. He denies any injury, no trauma. He has tried ice and heat, Tylenol and ibuprofen. His got him some lidocaine type medicine. Nothing has really helped. He states if he turns his head to either side it really hurts. States he almost feels a cracking or popping feeling in his neck. The pain is not going into his arms. He really started to notice it on Saturday. Saturday it was worse. Pain seems to have gotten even worse today in feels like it is radiating up by his ear and down more around his shoulder. States he can not raise his head, he is having to drink through a straw as tilting the head hurts on that left neck. He is on cholesterol medicine, takes Crestor. After talking to him, he did remember he was having a cystoscopy and there was some pain as the doctor was putting the scope in, he remembers somewhat snapping is neck abruptly to turn to look at the screen. He had not thought of that, that happened at the end of this past week. Patient is pointing to the left side of his neck along the course of the sternocleidomastoid muscle. Related Data Home Medications ?Medication ?Instructions ?Recorded ?Confirmed cetirizine 10 mg tablet (Zyrtec) 10 mg PO QDAY PRN 08/22/22 01/25/25 insulin glargine 100 unit/mL (3 30 unit subcut QPM 12/04/24 01/25/25 mL) subcutaneous pen (Lantus Solostar U-100 Insulin) Previous Rx's ?Medication ?Instructions ?Recorded blood sugar diagnostic (Accu-Chek #200 strips 11/07/23 Judy Plus test strips) apixaban 5 mg tablet 5 mg PO BID #180 tabs 05/28/24 chlorthalidone 25 mg tablet 25 mg PO QDAY #90 tabs 05/28/24 glimepiride 1 mg tablet 1 mg PO QAM #90 tabs 05/28/24 lisinopril 40 mg tablet 40 mg PO DAILY #90 tabs 05/28/24 metformin 500 mg tablet,extended 1,500 mg (3 x 500 mg) PO QDAY #270 05/28/24 release 24 hr tabs metoprolol succinate 50 mg 150 mg (3 x 50 mg) PO DAILY #270 05/28/24 tablet,extended release 24 hr tabs rosuvastatin 10 mg tablet 10 mg PO QDAY #90 tabs 05/28/24 dulaglutide 1.5 mg/0.5 mL 1.5 mg (0.5 mL) subcut QWEEK #2 mL 10/27/24 subcutaneous pen injector ([employer]) pen needle, diabetic 31 gauge x #100 ea 01/21/2505/16 (Pen Needle) Allergies Allergy/AdvReac Type Severity Reaction Status Date / Time bee venom protein (honey bee) Allergy Severe Swelling Verified 01/25/25 23:02 of Lip/Tongue/Throat erythromycin base Allergy Severe Anaphylaxis Verified 01/25/25 23:02 Penicillins Allergy Severe Anaphylaxis Verified 01/25/25 23:02 phenol Allergy Severe Anaphylaxis Verified 01/25/25 23:02 insulin detemir Allergy Intermediate Hives Verified 01/25/25 23:02 opioids Allergy Severe Anaphylaxis Uncoded 12/10/24 09:53 [facility] Medical History Morbid obesity with BMI of 40.0-44.9, adult ?E66.01 - Morbid (severe) obesity due to excess calories (ICD-10) ?Z68.41 - Body mass index [BMI] 40.0-44.9, adult (ICD-10) Diabetic retinopathy ?E11.319 - Type 2 diabetes mellitus with unspecified diabetic retinopathy without macular edema (ICD-10) Encounter for abdominal aortic aneurysm (AAA) screening (05/2023) ?Z13.6 - Encounter for screening for cardiovascular disorders (ICD-10) Hives ?L50.9 - Urticaria, unspecified (ICD-10) Persistent albuminuria (~2020) ?R80.9 - Proteinuria, unspecified (ICD-10) retirement current use of anticoagulant therapy ?Z79.01 - terminal clerk (current) use of anticoagulants (ICD-10) History of colonic polyps ?Z86.010 - Personal history of colonic polyps (ICD-10) History of cerebrovascular accident (11/2013) ?Z86.73 - Personal history of transient ischemic attack (TIA), and cerebral infarction without residual deficits (ICD-10) Coronary artery disease (2006) ?I25.10 - Atherosclerotic heart disease of [place] coronary artery without angina pectoris (ICD-10) Surgical History Hx of cystoscopy (09/2024) ?Z98.890 - Other specified postprocedural states (ICD-10) History of esophagogastroduodenoscopy (06/04/24) ?Z98.890 - Other specified postprocedural states (ICD-10) Hx of bilateral cataract extraction (09/2022) ?Z98.41 - Cataract extraction status, right eye (ICD-10) ?Z98.42 - Cataract extraction status, left eye (ICD-10) Abnormal carotid ultrasound (09/2021) ?R93.89 - Abnormal findings on diagnostic imaging of other specified body structures (ICD-10) History of tonsillectomy and adenoidectomy (1956) ?Z90.89 - Acquired absence of other organs (ICD-10) History of decompression of ulnar nerve (1996) ?Z98.890 - Other specified postprocedural states (ICD-10) History of coronary artery stent placement (2007) ?Z95.5 - Presence of coronary angioplasty implant and graft (ICD-10) History of colonoscopy (2018) ?Z98.890 - Other specified postprocedural states (ICD-10) History of appendectomy (1989) ?Z90.49 - Acquired absence of other specified parts of digestive tract (ICD-10) Anorectal fistula (2005) ?K60.5 - Anorectal fistula (ICD-10) Family History Father Afib Diabetes CHF (congestive heart failure) Mother Stroke, Onset Age: 76 Maternal Grandfather Myocardial infarction, Onset Age: 56 Son Non Hodgkin's lymphoma Social History Narrative: , 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, 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, exercise 3 times a week 30 minutes, either walking a recumbent bike nonsmoker, social drinker 1/week What is your current living situation?: I presently have a place to live Problems where you live: no known problems In the past 12 months, utilities in danger of being shut off: no In past 12 months, lack of transportation kept you from medical appts, meetings, work, or getting things needed for daily living: no In the past 12 mos, have been you worried that your food would run out before you had money to buy more?: never true In the past 12 mos, the food you bought just didn't last and you didn't have money to buy more?: never true Smoking Status: Former smoker Do you use any of these nicotine containing products: None How often do you have a drink containing alcohol: monthly or less How many standard drinks containing alcohol do you have on a typical day: 1 or 2 How often do you have six or more drinks on one occasion: Never AUDIT-C Alcohol total score: 1 Non-prescribed substance use: denies use How often does anyone, including family, friends and others, physically hurt you: never How often does anyone, including family, friends and others, insult or talk down to you: never How often does anyone, including family, friends and others, threaten you with harm: never How often does anyone, including family, friends and others, scream or curse at you: never service: No Exam Const: Vital Signs, click to edit/add: Vital Signs - 24 hr 01/25/25 22:55 01/25/25 23:41 Temperature 96.5 F L Pulse Rate [Pulse Oximeter] 74 82 Respiratory Rate 20 18 Blood Pressure [Ri ght Upper Arm] 165/92 H 147/84 H Pulse Oximetry 97 98 Oxygen Delivery Me thod Room Air Room Air This 74-year-old male is sitting the chair in exam room 3, he is holding his head very still. He does not want to do any flexion extension or any rotation of his head upon his neck, states he gets severe pain in the left side of his neck. Left TM canal are normal. Extracurricular structures normal. He has symmetrical facial function, pupils equal round, conjugate gaze. Speech is normal. He is point tenderness from the origin of the sternocleidomastoid mastoid muscle down to the base. The muscle body itself does not seem like it has enlarged from what I can palpate. There does not feel like there is any neck masses or adenopathy. He is nontender on his right side correspondingly. Lungs are clear, good air entry, no wheezing or crackles, no tachypnea accessory muscle use. CV regular rate and rhythm, no murmur. Upper extremities have normal strength and range of motion, normal sensation. Documenting provider has reviewed patient's vital signs: yes Course Course ED Course: This patient is certainly may be suffering from acquired torticollis. We did discuss this. Given that he is on rosuvastatin, will get a total CK just to make sure that this is an some odd presentation of myositis. He has no neuropathic features suggesting any cervical radiculopathy. His exam is classic for pain along the left sternocleidomastoid muscle. I do not feel that any imaging will change our management at all nor is it indicated from his clinical presentation. We have discussed muscle relaxants as potentially being beneficial. Will give him a dose of Valium 5 mg here orally. Reevaluation(s) Time of Reevaluation #1: 00:07 Reevaluation #1: Have reviewed with patient that his CK is low. Thus no myositis. He is received Valium, probably too early to say whether it is effective or not. Discussed transitioning to care at home. He has a recliner to sleep in. We did review that trying to sleep on either side would probably aggravate his neck right now. Will send him with Flexeril from [facility] (15 pills of 10mg). Vital Signs Vital signs: Initial Vital Signs Temperature 96.5 F L 01/25/25 22:55 Temperature Source Temporal Artery Scan 01/25/25 22:55 Pulse Rate 74 01/25/25 22:55 Respiratory Rate 20 01/25/25 22:55 Blood Pressure 165/92 H 01/25/25 22:55 Blood Pressure Mean 116 H 01/25/25 22:55 Blood Pressure Position Sitting 01/25/25 22:55 Pulse Oximetry 97 01/25/25 22:55 Oxygen Delivery Method Room Air 01/25/25 22:55 Vital Signs Temperature 96.5 F L 01/25/25 22:55 Pulse Rate 74 01/25/25 22:55 Respiratory Rate 20 01/25/25 22:55 Blood Pressure 165/92 H 01/25/25 22:55 Pulse Oximetry 97 01/25/25 22:55 Oxygen Delivery Method Room Air 01/25/25 22:55 Temperature 96.5 F L 01/25/25 22:55 Pulse Rate 82 01/25/25 23:41 Respiratory Rate 18 01/25/25 23:41 Blood Pressure 147/84 H 01/25/25 23:41 Pulse Oximetry 98 01/25/25 23:41 Oxygen Delivery Method Room Air 01/25/25 23:41 Medications Administered Medications: Discontinued Medications Generic Name Dose Route Start Last Admin Trade Name Freq PRN Reason Stop Dose Admin Diazepam 5 mg 01/25/25 23:14 01/25/25 23:37 Diazepam 5 Mg Tablet PO 01/25/25 23:15 5 mg ONCE ONE Administration MDM - Back Pain/Injury Lab Data Attestation: I reviewed the patient's lab results. Labs: Lab Results 01/25/25 Range/Units 23:35 Total Creatine Kinase 29 L (54-186) U/L Discharge Plan Discharge Clinical Impression: Acute torticollis Patient Disposition: Home, Self-Care Instructions: Spasmodic Torticollis (ED), Neck Pain (ED) Additional Instructions: Do believe your symptoms are from the left neck muscle sternocleidomastoid. Try moist heat. Can use the Flexeril 10 mg up to 3 times a day as prescribed. Tylenol 1000 mg up to 4 times a day short term. Baseline Tylenol is to be use 1000 mg 3 times a day but for few days 4 times a day is appropriate. Can supplement with ibuprofen per bottle directions as needed. Recheck in clinic if not improving over the next couple days or if having further concerns. If you could get into physical therapy, may benefit but think by the time you are able to get into physical therapy you will probably be improving. Activity Level: Activity as Tolerated Prescriptions: No Action cetirizine [Zyrtec] 10 mg tablet 10 mg PO QDAY PRN lisinopril 40 mg tablet 40 mg PO DAILY Qty: 90 3RF metformin 500 mg tablet extended release 24 hr 1,500 mg PO QDAY Qty: 270 3RF glimepiride 1 mg tablet 1 mg PO QAM Qty: 90 3RF Rx Instructions: administer with breakfast metoprolol succinate 50 mg tablet extended release 24 hr 150 mg PO DAILY Qty: 270 3RF rosuvastatin 10 mg tablet 10 mg PO QDAY Qty: 90 3RF chlorthalidone 25 mg tablet 25 mg PO QDAY Qty: 90 3RF apixaban 5 mg tablet 5 mg PO BID Qty: 180 3RF insulin glargine [Lantus Solostar U-100 Insulin] 100 unit/mL (3 mL) insulin pen 30 unit subcut QPM (DME) Accu-Chek Judy Plus test strp Strip See Rx Instructions .ROUTE .COMPLEX Qty: 200 0RF Dose Instruction: TEST TWICE A DAY DIRECTED Rx Instructions: TEST TWICE A DAY DIRECTED Trulicity 1.5 mg/0.5 mL pen injector 1.5 mg subcut QWEEK Qty: 2 2RF (DME) pen needle, diabetic [Pen Needle] 31 gauge x 1/4 needle See Rx Instructions .Route Qty: 100 4RF Rx Instructions: test blood sugars BID Follow Up/Referrals: Bonnie Child MD [Primary Care Provider, Family Practice] Stand Alone Forms: [employer] Info Instructions
[2025-01-25 23:41] VITALS: BP 147/84; PULSE 82; RESP 18; O2SAT 98
[2025-01-25 23:56] LABS: Creatine Kinase* 29 U/L (54-186)
== END 2025-01-26 00:37 | disposition home or self-care (01) ==
PROVIDERS: Emergency Provider Family Medicine; PCP Family Medicine
DX: M43.6 Torticollis (principal); R74.8 Abnormal levels of other serum enzymes
CPT/HCPCS: 36415; 82550; 99283

== ENCOUNTER 2025-01-28 17:53 | Emergency (ER) | payer MEDICARE, SELFPAY ==
[2025-01-28] VITALS (17 sets, daily range): BP systolic 159–174; BP diastolic 80–95; PULSE 82–105; RESP 16; TEMP 36.6; O2SAT 87–95; BMI 45.2
--- OUTSIDE RECORDS SUMMARY | 2025-01-28 17:55 | XMS_ITS | Clinical Summary ---
Author Organization [email or web address] [facility] Address [address] [place] [id number] Care Team Providers Care Engineering Surveyor Name Role Phone Bonnie Child MD Primary Care Provider + Stanley Wells MD Unavailable Bharti Corona Unavailable Rolando Muse MD Unavailable [phone] Allergies Active Allergy Reactions Criticality Noted Date Comments Venom-Honey Bee Anaphylaxis High 10/16/2017 Cephalexin Rash 10/16/2017 Erythromycin Hives 10/16/2017 Insulin Detemir Rash 10/16/2017 Opioids - Morphine Analogues Angioedema 10/16/2017 Penicillins Anaphylaxis High 10/16/2017 Poison Sayra Extract Rash 10/16/2017 Poison Rozel Extract Rash 10/16/2017 Shellfish Derived Hives,Rash 10/16/2017 [...] Description 01/21/2025 10:30 AM CDT Procedure Only [address] [place] [address] Rolando Muse MD Procedure (Cysto/TRUS sizing) 01/21/2025 Travel 01/19/[address] [address] Rolando Muse MD requesting a call (Patient is want to speak with the Provider ) 01/16/2025 Travel 12/23/2024 8:30 AM CDT Office Visit [address] [address] Bharti Corona PA Follow Up (3 month follow up to reassess urinary symptoms) 12/23/2024 Travel 12/18/2024 Travel 12/10/2024 10:00 AM CDT Office Visit [facility] & [address] [address] Darwin Nunez MD 12/10/2024 Orders Only [facility] Scanner 1 scan: (1-Ord) 12/10/2024 12/10/2024 Orders Only [facility] Scanner 1 scan: (1-Ord) 12/10/2024 from [...] Description 07/22/2025 9:00 AM CDT Office Visit [facility] [address] [place] [address] Rolando Muse MD [address] [place] [address] Health Maintenance Due Date Last Done Comments [...] Procedure Name Priority Date/Time Associated Diagnosis Comments [place] SHELIA POST-VOIDING RESIDUAL URINE&/BLADDER CAP Routine 12/23/2024 12:00 AM CDT 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 SCAN-ELECTROCARDIOG TORY EKG 12/10/2024 12:00 AM CDT SCAN-ELECTROCARDIOG TROY EKG 12/10/2024 12:[address] ABDOMEN PELVIS STONE PROTOCOL WO Routine 10/01/2024 8:16 AM CDT Right flank pain from Last 3 Months or Most Recently Relevant to Health Maintenance Results * [place] SHELIA POST-VOIDING RESIDUAL URINE&/BLADDER CAP (12/23/2024 12:00 AM CDT) us Bhartivineet [facility]IMEN[facility] - URINARY SYSTEM SERV[facility] YURIY Final Result * SCAN-ELECTROCARDIOGRAM EKG (12/10/2024 12:00 [...] Most Recently Relevant to Health Maintenance Insurance [facility] MR Care Teams Engineering Surveyor Relationship Specialty Start Date End Date Bonnie Child MD [address] [place] [address] PCP - General Family Practice 10/02/17 [place] [address] Surgery - Urology 09/21/24 [place] [address] 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
--- NOTE | 2025-01-28 18:21 | CT_ITS ---
Patient: AV HE Facility:?[facility] Patient ID:?[id number] Site Patient ID:?[id number]. Site :?1950 Study:?CT-Head Angio 95CC ISOVUE NONACUTE-01/28/2025 8:50:50 PM Ordering Physician:David Richardson Final Report: DATE: 01/28/2025 CLINICAL HISTORY: Patient with neck pain and headache. TECHNIQUE: Standard helical CT image acquisition through the head and neck was performed after intravenous contrast bolus enhancement. 2D and 3D MIP images for post- processing were performed and interpreted on an independent workstation and 3D images were permanently archived. COMPARISON: CT same day. FINDINGS: The origins of the great vessels from the aortic arch are patent. The origin of the right vertebral artery is patent. The origin of the left vertebral artery is patent. The common carotid arteries are patent There is plaque without stenosis at the origin of the right internal carotid artery. There is plaque without stenosis at the origin of the left internal carotid artery. The rest of the cervical segments of the internal carotid arteries are patent up to their intracranial segments. The intracranial segments of the internal carotid arteries demonstrate mild to moderate intracranial atherosclerosis. The left vertebral artery is dominant. The cervical segments of the vertebral arteries are patent. The intracranial segments of the vertebral arteries are patent. The middle cerebral arteries are normal without aneurysm or proximal occlusion identified. The anterior cerebral arteries are normal without aneurysm or proximal occlusion identified. The anterior communicating artery is well visualized and appears normal. The basilar artery is normal without aneurysm or occlusion. The posterior cerebral arteries are normal without aneurysm or proximal occlusion. There is normal opacification of major intracranial venous structures. The visualized lung apices are unremarkable The thyroid gland is unremarkable. The soft tissues of the neck are unremarkable. There are degenerative changes in the cervical spine. IMPRESSION: Mild to moderate intracranial atherosclerosis in the carotid siphons bilaterally. Patent rest of the cervical and proximal intracranial vasculature. Please note that all CT scans at this facility use dose modulation, iterative reconstruction, and/or weight-based dosing when appropriate to reduce radiation dose to as low as reasonably achievable. Dictated by Scott Elliott MD @ 01/28/2025 11:08:33 PM (Electronic Signature)
--- NOTE | 2025-01-28 18:21 | CT_ITS ---
Patient: AV HE Facility:?[facility] Patient ID:?[id number] Site Patient ID:?[id number]. Site :?1950 Study:?CT-Neck Angio Angio 95CC ISOVUE NONACUTE-01/28/2025 8:51:01 PM Ordering Physician:David Richardson Final Report: DATE: 01/28/2025 CLINICAL HISTORY: Patient with neck pain and headache. TECHNIQUE: Standard helical CT image acquisition through the head and neck was performed after intravenous contrast bolus enhancement. 2D and 3D MIP images for post- processing were performed and interpreted on an independent workstation and 3D images were permanently archived. COMPARISON: CT same day. FINDINGS: The origins of the great vessels from the aortic arch are patent. The origin of the right vertebral artery is patent. The origin of the left vertebral artery is patent. The common carotid arteries are patent There is plaque without stenosis at the origin of the right internal carotid artery. There is plaque without stenosis at the origin of the left internal carotid artery. The rest of the cervical segments of the internal carotid arteries are patent up to their intracranial segments. The intracranial segments of the internal carotid arteries demonstrate mild to moderate intracranial atherosclerosis. The left vertebral artery is dominant. The cervical segments of the vertebral arteries are patent. The intracranial segments of the vertebral arteries are patent. The middle cerebral arteries are normal without aneurysm or proximal occlusion identified. The anterior cerebral arteries are normal without aneurysm or proximal occlusion identified. The anterior communicating artery is well visualized and appears normal. The basilar artery is normal without aneurysm or occlusion. The posterior cerebral arteries are normal without aneurysm or proximal occlusion. There is normal opacification of major intracranial venous structures. The visualized lung apices are unremarkable The thyroid gland is unremarkable. The soft tissues of the neck are unremarkable. There are degenerative changes in the cervical spine. IMPRESSION: Mild to moderate intracranial atherosclerosis in the carotid siphons bilaterally. Patent rest of the cervical and proximal intracranial vasculature. Please note that all CT scans at this facility use dose modulation, iterative reconstruction, and/or weight-based dosing when appropriate to reduce radiation dose to as low as reasonably achievable. Dictated by Scott Elliott MD @ 01/28/2025 11:09:14 PM (Electronic Signature)
--- NOTE | 2025-01-28 18:21 | CRLHL7_ITS ---
For Patients: As a result of the Century Cures Act, medical imaging exams and procedure reports are released immediately into your electronic medical record. You may view this report before your referring provider. If you have questions, please contact your health care provider. INDICATION: Headache. TECHNIQUE: CT head without contrast. COMPARISON: None. FINDINGS: CSF spaces: Within normal limits for age. Brain parenchyma: The brady-white differentiation is maintained. Patchy white matter low attenuation changes, nonspecific but likely reflecting mild chronic small vessel ischemic disease. No evidence of intracranial hemorrhage, extra-axial collection, or midline shift. Atherosclerotic calcifications of the cavernous carotids and carotid siphons. Skull base and calvarium: Mild polypoid mucosal thickening in the maxillary sinuses. Mastoid air cells are clear. Bilateral lens extraction. Calvarium is intact. IMPRESSION: No acute intracranial abnormality. Please note that all CT scans at this facility use dose modulation, iterative reconstruction, and/or weight-based dosing when appropriate to reduce radiation dose to as low as reasonably achievable. Dictated by Sea Lara MD @ 01/28/2025 9:03:45 PM (Electronically Signed)
--- NOTE | 2025-01-28 18:34 | CRLHL7_ITS ---
For Patients: As a result of the Century Cures Act, medical imaging exams and procedure reports are released immediately into your electronic medical record. You may view this report before your referring provider. If you have questions, please contact your health care provider. INDICATION: Neck pain. TECHNIQUE: CT cervical spine without contrast. COMPARISON: None. FINDINGS: Vertebrae: Straightening of the normal cervical lordosis, which may be due to muscle spasm or positioning. There are no fractures or suspicious bony lesions. Discs and facet joints: Mild to moderate spondylosis with multilevel disc space narrowing and endplate spurring. Mild multilevel spinal canal narrowing. Scattered uncovertebral and facet arthropathy with severe right C3-C4 and left C5-C6 foraminal narrowing. Extraspinal findings: Atherosclerotic calcifications of the carotid bifurcations. IMPRESSION: Degenerative changes without evidence of acute osseous abnormality. Please note that all CT scans at this facility use dose modulation, iterative reconstruction, and/or weight-based dosing when appropriate to reduce radiation dose to as low as reasonably achievable. Dictated by Sea Lara MD @ 01/28/2025 9:07:55 PM (Electronically Signed)
--- NOTE | 2025-01-28 18:43 | ED.GENADULT ---
HPI - General Adult General Date Seen: 01/28/25 Chief complaint: Headache/Migraine Stated complaint: R side head pain Time Seen by Provider: 01/28/25 18:23 History of Present Illness HPI narrative: Patient is a 74-year-old male with past medical history notable for coronary artery disease, stroke, type 2 diabetes, chronically at anticoagulated secondary to atrial fibrillation, who presents with left neck pain. Symptoms started about 5 days ago, he was seen 4 days ago in the ER at that time felt to have likely torticollis. He has significant pain with any movement of his neck, he is not able to lay down because of neck pain. He says that symptoms have just gotten worse since he was here last with more severe pain. Pain radiates up to kind of behind his ear. He has not had trauma. There has not been swelling, fever or other systemic symptoms. He has been taking ibuprofen Tylenol and a muscle relaxer and says that he just can not handle the pain. Related Data Home Medications ?Medication ?Instructions ?Recorded ?Confirmed cetirizine 10 mg tablet (Zyrtec) 10 mg PO QDAY PRN 08/22/22 01/25/25 insulin glargine 100 unit/mL (3 30 unit subcut QPM 12/04/24 01/25/25 mL) subcutaneous pen (Lantus Solostar U-100 Insulin) Previous Rx's ?Medication ?Instructions ?Recorded blood sugar diagnostic (Accu-Chek #200 strips 11/07/23 Judy Plus test strips) apixaban 5 mg tablet 5 mg PO BID #180 tabs 05/28/24 chlorthalidone 25 mg tablet 25 mg PO QDAY #90 tabs 05/28/24 glimepiride 1 mg tablet 1 mg PO QAM #90 tabs 05/28/24 lisinopril 40 mg tablet 40 mg PO DAILY #90 tabs 05/28/24 metformin 500 mg tablet,extended 1,500 mg (3 x 500 mg) PO QDAY #270 05/28/24 release 24 hr tabs metoprolol succinate 50 mg 150 mg (3 x 50 mg) PO DAILY #270 05/28/24 tablet,extended release 24 hr tabs rosuvastatin 10 mg tablet 10 mg PO QDAY #90 tabs 05/28/24 dulaglutide 1.5 mg/0.5 mL 1.5 mg (0.5 mL) subcut QWEEK #2 mL 10/27/24 subcutaneous pen injector ([facility]) pen needle, diabetic 31 gauge x #100 ea 01/21/2505/16 (Pen Needle) Allergies Allergy/AdvReac Type Severity Reaction Status Date / Time bee venom protein (honey bee) Allergy Severe Swelling Verified 01/28/25 20:51 of Lip/Tongue/Throat erythromycin base Allergy Severe Anaphylaxis Verified 01/28/25 20:51 Penicillins Allergy Severe Anaphylaxis Verified 01/28/25 20:51 phenol Allergy Severe Anaphylaxis Verified 01/28/25 20:51 insulin detemir Allergy Intermediate Hives Verified 01/28/25 20:51 opioids Allergy Severe Anaphylaxis Uncoded 01/28/25 20:51 Review of Systems Status of ROS: Reports: 10 or more systems reviewed and unremarkable except as noted in History and below [facility] Medical History Morbid obesity with BMI of 40.0-44.9, adult ?E66.01 - Morbid (severe) obesity due to excess calories (ICD-10) ?Z68.41 - Body mass index [BMI] 40.0-44.9, adult (ICD-10) Diabetic retinopathy ?E11.319 - Type 2 diabetes mellitus with unspecified diabetic retinopathy without macular edema (ICD-10) Encounter for abdominal aortic aneurysm (AAA) screening (05/2023) ?Z13.6 - Encounter for screening for cardiovascular disorders (ICD-10) Hives ?L50.9 - Urticaria, unspecified (ICD-10) Persistent albuminuria (~2020) ?R80.9 - Proteinuria, unspecified (ICD-10) 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 ?Z79.01 - skilled nursing (current) use of anticoagulants (ICD-10) History of colonic polyps ?Z86.010 - Personal history of colonic polyps (ICD-10) History of cerebrovascular accident (11/2013) ?Z86.73 - Personal history of transient ischemic attack (TIA), and cerebral infarction without residual deficits (ICD-10) Coronary artery disease (2006) ?I25.10 - Atherosclerotic heart disease of [place] coronary artery without angina pectoris (ICD-10) Surgical History Hx of cystoscopy (09/2024) ?Z98.890 - Other specified postprocedural states (ICD-10) History of esophagogastroduodenoscopy (06/04/24) ?Z98.890 - Other specified postprocedural states (ICD-10) Hx of bilateral cataract extraction (09/2022) ?Z98.41 - Cataract extraction status, right eye (ICD-10) ?Z98.42 - Cataract extraction status, left eye (ICD-10) Abnormal carotid ultrasound (09/2021) ?R93.89 - Abnormal findings on diagnostic imaging of other specified body structures (ICD-10) History of tonsillectomy and adenoidectomy (1956) ?Z90.89 - Acquired absence of other organs (ICD-10) History of decompression of ulnar nerve (1996) ?Z98.890 - Other specified postprocedural states (ICD-10) History of coronary artery stent placement (2007) ?Z95.5 - Presence of coronary angioplasty implant and graft (ICD-10) History of colonoscopy (2018) ?Z98.890 - Other specified postprocedural states (ICD-10) History of appendectomy (1989) ?Z90.49 - Acquired absence of other specified parts of digestive tract (ICD-10) Anorectal fistula (2005) ?K60.5 - Anorectal fistula (ICD-10) Family History Father Afib Diabetes CHF (congestive heart failure) Mother Stroke, Onset Age: 76 Maternal Grandfather Myocardial infarction, Onset Age: 56 Son Non Hodgkin's lymphoma Social History Narrative: , 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, 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, exercise 3 times a week 30 minutes, either walking a recumbent bike nonsmoker, social drinker 1/week What is your current living situation?: I presently have a place to live Problems where you live: no known problems In the past 12 months, utilities in danger of being shut off: no In past 12 months, lack of transportation kept you from medical appts, meetings, work, or getting things needed for daily living: no In the past 12 mos, have been you worried that your food would run out before you had money to buy more?: never true In the past 12 mos, the food you bought just didn't last and you didn't have money to buy more?: never true Smoking Status: Former smoker Do you use any of these nicotine containing products: None How often do you have a drink containing alcohol: monthly or less How many standard drinks containing alcohol do you have on a typical day: 1 or 2 How often do you have six or more drinks on one occasion: Never AUDIT-C Alcohol total score: 1 Non-prescribed substance use: denies use How often does anyone, including family, friends and others, physically hurt you: never How often does anyone, including family, friends and others, insult or talk down to you: never How often does anyone, including family, friends and others, threaten you with harm: never How often does anyone, including family, friends and others, scream or curse at you: never service: No Exam Narrative: Exam Narrative: Vital signs reviewed In general, alert, nontoxic Head: Normocephalic, atraumatic. Eyes: Sclera clear. Pupils equal and reactive. Extraocular movements are full. ENT: Mucous membranes moist. Neck: He holds his neck completely still. He will rotate a few degrees in either direction. He has completely absent extension, will flex a couple of degrees as well. There is no erythema or warmth. He has a couple of probably lymph nodes in the posterior chain that are palpable on the left side of his neck posteriorly. He has tenderness diffusely over the left side of his neck does not really have any tenderness and was rhomboid or trapezius. I do not feel significant spasm. There is no crepitus. He has a ?popping sensation when he moves his neck which he says has gotten worse since he was here last, but I do not feel anything on palpation. Heart: Regular rate and rhythm without murmur. Lungs: Clear. No increased work of breathing, crackles or wheezes. Abdomen: Soft, nontender to palpation. Extremities: Well perfused, pulses intact. No significant edema. Neurologic: Alert, conversant. Speech fluent, face symmetric. Moves all extremities equally. Cerebellar function intact by fingers nose testing. Skin: Warm, dry well perfused. Affect: Normal. Const: Vital Signs, click to edit/add: Vital Signs - 24 hr 01/28/25 18:03 01/28/25 20:55 01/28/25 21:00 Temperature 97.8 F Pulse Rate 93 88 Pulse Rate [Pulse Oximeter] 82 Respiratory Rate 16 Blood Pressure Blood Pressure [Ri ght Upper Arm] 159/87 H Pulse Oximetry 95 91 91 Oxygen Delivery Me thod Room Air 01/28/25 21:01 01/28/25 21:15 01/28/25 21:30 Temperature Pulse Rate 91 100 100 Pulse Rate [Pulse Oximeter] Respiratory Rate Blood Pressure 169/92 H Blood Pressure [Ri ght Upper Arm] Pulse Oximetry 91 93 92 Oxygen Delivery Me thod 01/28/25 21:55 01/28/25 22:02 01/28/25 22:22 Temperature Pulse Rate 97 94 100 Pulse Rate [Pulse Oximeter] Respiratory Rate Blood Pressure 166/87 H 159/88 H 164/94 H Blood Pressure [Ri ght Upper Arm] Pulse Oximetry 92 92 92 Oxygen Delivery Me thod 01/28/25 22:35 01/28/25 22:42 01/28/25 22:45 Temperature Pulse Rate 93 93 96 Pulse Rate [Pulse Oximeter] Respiratory Rate Blood Pressure 169/93 H Blood Pressure [Ri ght Upper Arm] Pulse Oximetry 88 91 91 Oxygen Delivery Me thod 01/28/25 23:00 01/28/25 23:02 01/28/25 23:15 Temperature Pulse Rate 95 97 102 H Pulse Rate [Pulse Oximeter] Respiratory Rate Blood Pressure 174/95 H Blood Pressure [Ri ght Upper Arm] Pulse Oximetry 94 87 L 93 Oxygen Delivery Me thod 01/28/25 23:22 01/28/25 23:30 01/29/25 00:00 Temperature Pulse Rate 104 H 105 H 102 H Pulse Rate [Pulse Oximeter] Respiratory Rate Blood Pressure 164/80 H Blood Pressure [Ri ght Upper Arm] Pulse Oximetry 92 94 92 Oxygen Delivery Me thod Course Course ED Course: Given that symptoms have worsened, I think it is appropriate today to do some imaging of the head, cervical spine and vasculature. These are ordered. He says he will need some kind of pain control to be able to lay flat. He has a listed allergy to opioids, reportedly anaphylaxis, will try some ketamine for pain control. Routine labs ordered as well. I reviewed the radiology reads for the head CT, cervical spine CT, and CT angiogram of the head and neck. I personally reviewed the head CT and cervical spine CT. I did not see any acute findings such as hemorrhage, bony abnormalities or obvious soft tissue swelling. Essentially radiology reads all of these images as negative for any thing acute to account for his severe pain. Labs returned showing a normal white blood cell count of 8.83, mild left shift with 75% neutrophils. Hemoglobin of 12.2, last checked in May of 2024 at which time it was 13.6. Metabolic panel is largely unremarkable. Creatinine is normal. Initial lactate was 2.9. CRP elevated at 15.7. I consulted with Dr. Demarco, on-call for Neurology at [place]. She agrees with the need for emergent MRI to evaluate for possible epidural hematoma or abscess. As it is after hours we will not have MRI capability until tomorrow morning, and she agrees that he would not be best served by waiting until then if at all possible. Plan will be to transfer to [facility] as soon as a bed is available. He had 25 mg of ketamine initially which did not seem to help a lot, I repeated with 50 mg, any seems more comfortable. He remains neurologically intact. Transfer by ground to [facility]. Vital Signs Vital signs: Initial Vital Signs Temperature 97.8 F 01/28/25 18:03 Temperature Source Temporal Artery Scan 01/28/25 18:03 Pulse Rate 82 01/28/25 18:03 Respiratory Rate 16 01/28/25 18:03 Blood Pressure 159/87 H 01/28/25 18:03 Blood Pressure Mean 111 H 01/28/25 18:03 Blood Pressure Position Sitting 01/28/25 18:03 Pulse Oximetry 95 01/28/25 18:03 Oxygen Delivery Method Room Air 01/28/25 18:03 Vital Signs Temperature 97.8 F 01/28/25 18:03 Pulse Rate 82 01/28/25 18:03 Respiratory Rate 16 01/28/25 18:03 Blood Pressure 159/87 H 01/28/25 18:03 Pulse Oximetry 95 01/28/25 18:03 Oxygen Delivery Method Room Air 01/28/25 18:03 Temperature 97.8 F 01/28/25 18:03 Pulse Rate 102 H 01/29/25 00:00 Respiratory Rate 16 01/28/25 18:03 Blood Pressure 164/80 H 01/28/25 23:22 Pulse Oximetry 92 01/29/25 00:00 Oxygen Delivery Method Room Air 01/28/25 18:03 Medications Administered Medications: Discontinued Medications Generic Name Dose Route Start Last Admin Trade Name Bert PRN Reason Stop Dose Admin Ketamine HCl 25 mg 01/28/25 19:58 01/28/25 20:14 Ketamine Hcl 100 Mg/Ml Inj IVP 01/28/25 19:59 25 mg ONCE ONE Administration Ketamine HCl 50 mg 01/28/25 21:42 01/28/25 21:55 Ketamine Hcl 100 Mg/Ml Inj IVP 01/28/25 21:43 50 mg ONCE ONE Administration Lidocaine 1 patch 01/28/25 21:42 01/28/25 21:54 Lidocaine 5% Patch TRANSDERMA 01/28/25 21:43 1 patch ONCE ONE Administration Protocol Medical Decision Making Lab Data Lab results reviewed: Yes I reviewed the patient's lab results Labs: Lab Results 01/28/25 01/28/25 01/28/25 Range/Units 18:21 19:05 23:12 WBC 8.83 (4.50-11.00) K/uL RBC 4.08 L (4.30-5.90) m/uL Hgb 12.2 L (13.5-17.5) gm/dL Hct 36.3 L (37.0-53.0) % MCV 89 (80-100) fL MCH 30 (26-34) pg MCHC 34 (32-36) gm/dL RDW Coeff of Gita 13.6 (11.5-15.5) % Plt Count 222 (140-440) K/uL Neut % (Auto) 74.6 H (42.0-72.0) % Lymph % (Auto) 12.6 L (20-44) % [place] % (Auto) 10.3 (0.0-11.0) % Eos % (Auto) 2.0 (0.0-7.0) % Baso % (Auto) 0.2 (0.0-3.0) % Neut # (Auto) 6.60 (1.7-7.0) K/uL Lymph # (Auto) 1.10 (0.90-2.90) K/uL [place] # (Auto) 0.90 (0.00-0.90) K/UL Eos # (Auto) 0.18 (0.00-0.50) K/uL Baso # (Auto) 0.02 (0.00-0.30) K/uL Abs Immat Gran (auto) 0.03 (0.00-0.30) K/uL Imm/Tot Granulo (auto) 0.3 % Sodium 130 L (135-149) mmol/L Potassium 4.1 (3.6-5.1) mmol/L Chloride 95 L (96-114) mmol/L Carbon Dioxide 23 (20-32) mmol/L Anion Gap 12 (7-15) mEq/L BUN 31 H (7-30) mg/dL Creatinine 1.0 (0.5-1.5) mg/dL Estimated Creat Clear 63.65 Estimated GFR 79 ml/min Glucose 90 (60-115) mg/dL Lactate 2.8 H 1.1 (0.5-1.9) mmol/L Calcium 9.8 (8.4-10.6) mg/dL C-Reactive Protein 15.7 H (0.5-1.0) mg/dL POC Creatinine 1.1 (0.6-1.3) mg/dl Imaging Data CT scan - head: Attestation: I have reviewed the pertinent imaging results. Radiologist's impression: Patient: Av Cherry MR#: [id number] : 1950 Acct:[id number] Loc: ED Service Date: 01/28/[address]: Ordering Physician: Debra Love M.D. Date of Service: 01/28/25 Procedure(s): CT head/brain wo con Accession Number(s): [id number] cc: Debra Love M.D.; Bonnie Child M.D.~ For Patients: As a result of the 21st Century Cures Act, medical imaging exams and procedure reports are released immediately into your electronic medical record. You may view this report before your referring provider. If you have questions, please contact your health care provider. INDICATION: Headache. TECHNIQUE: CT head without contrast. COMPARISON: None. FINDINGS: CSF spaces: Within normal limits for age. Brain parenchyma: The brady-white differentiation is maintained. Patchy white matter low attenuation changes, nonspecific but likely reflecting mild chronic small vessel ischemic disease. No evidence of intracranial hemorrhage, extra-axial collection, or midline shift. Atherosclerotic calcifications of the cavernous carotids and carotid siphons. Skull base and calvarium: Mild polypoid mucosal thickening in the maxillary sinuses. Mastoid air cells are clear. Bilateral lens extraction. Calvarium is intact. IMPRESSION: No acute intracranial abnormality. Please note that all CT scans at this facility use dose modulation, iterative reconstruction, and/or weight-based dosing when appropriate to reduce radiation dose to as low as reasonably achievable. Dictated by Sea Lara MD @ 01/28/2025 9:03:45 PM Patient: AV CHERRY Facility: [facility] . Site : 1950 Study: CT-Head Angio 95CC ISOVUE NONACUTE-01/28/2025 8:50:50 PM Ordering Physician: Ivan Richardson Final Report: DATE: 01/28/2025 CLINICAL HISTORY: Patient with neck pain and headache. TECHNIQUE: Standard helical CT image acquisition through the head and neck was performed after intravenous contrast bolus enhancement. 2D and 3D MIP images for post-processing were performed and interpreted on an independent workstation and 3D images were permanently archived. COMPARISON: CT same day. FINDINGS: The origins of the great vessels from the aortic arch are patent. The origin of the right vertebral artery is patent. The origin of the left vertebral artery is patent. The common carotid arteries are patent There is plaque without stenosis at the origin of the right internal carotid artery. There is plaque without stenosis at the origin of the left internal carotid artery. The rest of the cervical segments of the internal carotid arteries are patent up to their intracranial segments. The intracranial segments of the internal carotid arteries demonstrate mild to moderate intracranial atherosclerosis. The left vertebral artery is dominant. The cervical segments of the vertebral arteries are patent. The intracranial segments of the vertebral arteries are patent. The middle cerebral arteries are normal without aneurysm or proximal occlusion identified. The anterior cerebral arteries are normal without aneurysm or proximal occlusion identified. The anterior communicating artery is well visualized and appears normal. The basilar artery is normal without aneurysm or occlusion. The posterior cerebral arteries are normal without aneurysm or proximal occlusion. There is normal opacification of major intracranial venous structures. The visualized lung apices are unremarkable The thyroid gland is unremarkable. The soft tissues of the neck are unremarkable. There are degenerative changes in the cervical spine. IMPRESSION: Mild to moderate intracranial atherosclerosis in the carotid siphons bilaterally. Patent rest of the cervical and proximal intracranial vasculature. Please note that all CT scans at this facility use dose modulation, iterative reconstruction, and/or weight-based dosing when appropriate to reduce radiation dose to as low as reasonably achievable. Dictated by Scott Elliott MD @ 01/28/2025 11:08:[address] cervical spine: Attestation: I have reviewed the pertinent imaging results. Radiologist's impression: Patient: Av Cherry MR#: [id number] : 1950 Acct:[id number] Loc: ED Service Date: 01/28/[address]: Ordering Physician: Debra Love M.D. Date of Service: 01/28/25 Procedure(s): CT cervical spine wo con Accession Number(s): [id number] cc: Debra Love M.D.; Bonnie Child M.D.~ For Patients: As a result of the Cures Act, medical imaging exams and procedure reports are released immediately into your electronic medical record. You may view this report before your referring provider. If you have questions, please contact your health care provider. INDICATION: Neck pain. TECHNIQUE: CT cervical spine without contrast. COMPARISON: None. FINDINGS: Vertebrae: Straightening of the normal cervical lordosis, which may be due to muscle spasm or positioning. There are no fractures or suspicious bony lesions. Discs and facet joints: Mild to moderate spondylosis with multilevel disc space narrowing and endplate spurring. Mild multilevel spinal canal narrowing. Scattered uncovertebral and facet arthropathy with severe right C3-C4 and left C5-C6 foraminal narrowing. Extraspinal findings: Atherosclerotic calcifications of the carotid bifurcations. IMPRESSION: Degenerative changes without evidence of acute osseous abnormality. Please note that all CT scans at this facility use dose modulation, iterative reconstruction, and/or weight-based dosing when appropriate to reduce radiation dose to as low as reasonably achievable. Dictated by Sea Lara MD @ 01/28/2025 9:07:55 PM Discharge Plan Discharge Clinical Impression: Neck pain, Anticoagulated Patient Disposition: Shalini Moreau Prescriptions: No Action cetirizine [Zyrtec] 10 mg tablet 10 mg PO QDAY PRN lisinopril 40 mg tablet 40 mg PO DAILY Qty: 90 3RF metformin 500 mg tablet extended release 24 hr 1,500 mg PO QDAY Qty: 270 3RF glimepiride 1 mg tablet 1 mg PO QAM Qty: 90 3RF Rx Instructions: administer with breakfast metoprolol succinate 50 mg tablet extended release 24 hr 150 mg PO DAILY Qty: 270 3RF rosuvastatin 10 mg tablet 10 mg PO QDAY Qty: 90 3RF chlorthalidone 25 mg tablet 25 mg PO QDAY Qty: 90 3RF apixaban 5 mg tablet 5 mg PO BID Qty: 180 3RF insulin glargine [Lantus Solostar U-100 Insulin] 100 unit/mL (3 mL) insulin pen 30 unit subcut QPM (DME) Accu-Chek Judy Plus test strp Strip See Rx Instructions .ROUTE .COMPLEX Qty: 200 0RF Dose Instruction: TEST TWICE A DAY DIRECTED Rx Instructions: TEST TWICE A DAY DIRECTED Trulicity 1.5 mg/0.5 mL pen injector 1.5 mg subcut QWEEK Qty: 2 2RF (DME) pen needle, diabetic [Pen Needle] 31 gauge x 1/4 needle See Rx Instructions .Route Qty: 100 4RF Rx Instructions: test blood sugars BID Stand Alone Forms: My[facility] Info Instructions
[2025-01-28 19:13] LABS: Creatinine, Point-of-Care* 1.1 mg/dl (0.6-1.3)
[2025-01-28] MEDS: KETAMINE HCL 100 MG/ML inj 25 MG IVP (20:14)
--- NOTE | 2025-01-28 20:28 | ED.NURSE ---
Fentanyl not administered due to allergy. Not able to chart in MAR due to system limitation.
[2025-01-28 21:43] LABS: Lactate Sepsis w/Reflex* 2.8 mmol/L (0.5-1.9)
[2025-01-28 21:44] LABS: Hematocrit* 36.3 % (37.0-53.0); Hemoglobin* 12.2 gm/dL (13.5-17.5); Immature Granulocytes Abs Auto 0.03 K/uL (0.00-0.30); Immature Granulocytes Pct Auto 0.3 %; Mean Corpuscular HGB Conc 34 gm/dL (32-36); Mean Corpuscular Hemoglobin 30 pg (26-34); Mean Corpuscular Volume 89 fL (80-100); RDW Coefficient of Variation % 13.6 % (11.5-15.5); Red Blood Count* 4.08 m/uL (4.30-5.90); White Blood Count* 8.83 K/uL (4.50-11.00)
[2025-01-28 21:45] LABS: Lymphocytes Absolute Auto 1.10 K/uL (0.90-2.90); Slide Review Reflex No
[2025-01-28] MEDS: LIDOCAINE 5% PATCH 1 PATCH TRANSDERMA (21:54)
[2025-01-28] MEDS: KETAMINE HCL 100 MG/ML inj 50 MG IVP (21:55)
[2025-01-28 22:02] LABS: Chloride* 95 mmol/L (96-114); Potassium* 4.1 mmol/L (3.6-5.1); Sodium* 130 mmol/L (135-149)
[2025-01-28 22:06] LABS: Anion Gap 12 mEq/L (7-15); Blood Urea Nitrogen* 31 mg/dL (7-30); Calcium* 9.8 mg/dL (8.4-10.6); Carbon Dioxide* 23 mmol/L (20-32); Creatinine* 1.0 mg/dL (0.5-1.5); Est. Creatinine Clearance* 63.65; Estimated Glomerular Filt Rate 79 ml/min; Glucose* 90 mg/dL (60-115)
[2025-01-28 23:16] LABS: Lactate Sepsis 2 Hour 1.1 mmol/L (0.5-1.9)
[2025-01-29] VITALS: PULSE 102; O2SAT 92
[2025-01-29 00:03] VITALS: BP 174/73; PULSE 101; RESP 18; O2SAT 92
[2025-01-29 01:02] VITALS: BP 150/87; O2SAT 93
[2025-01-29 01:07] VITALS: PULSE 96; O2SAT 96
[2025-01-29] MEDS: KETAMINE HCL 100 MG/ML inj 50 MG IVP (01:27)
== END 2025-01-29 01:44 | disposition short-term general hospital (02) ==
PROVIDERS: Emergency Provider Emergency Medicine; PCP Family Medicine
DX: M54.2 Cervicalgia (principal); Z79.01 Long term (current) use of anticoagulants
CPT/HCPCS: 36415; 70450; 70496; 70498; 72125; 80048; 82565; 83605; 85025; 86140; 94761; 99285; A9270; J3490; Q9967

== ENCOUNTER 2025-01-29 01:21 | Outpatient (CLI) | payer MEDICARE, SELFPAY | END 2025-01-29 01:22 | disposition home or self-care (01) | LOC: AMB 02-17 11:32 | PROVIDERS: PCP Family Medicine; Visit Provider Family Medicine | DX: M54.2 Cervicalgia (principal); Z79.01 Long term (current) use of anticoagulants | CPT/HCPCS: A0425; A0434 ==